=== PATIENT | female | born 1985 | race Caucasian/White ===

== ENCOUNTER 2020-06-30 08:47 | Outpatient (REF) | payer OTHER, SELFPAY ==
[2020-06-30 10:05] LABS: Free T4 (Free Thyroxine) 1.01 ng/dL (0.71-1.85); Thyroid Stimulating Hormone 1.92 uIU/mL (0.32-4.0)
[2020-06-30 10:06] LABS: Hematocrit 41.3 % (37-47); Hemoglobin 13.3 g/dl (12.0-16.0); Mean Corpuscular HGB Conc 32.2 g/dl (31.0-35.0); Mean Corpuscular Volume 86.9 fL (80-98); Mean Platelet Volume 9.8 fL (9.4-12.3); Platelet Count 235 X10*3/uL (160-400); Red Blood Count 4.75 X10*6/uL (4.20-5.50); Red Cell Distribution Width 12.7 % (11.0-16.0); White Blood Count 5.6 X10*3/uL (4.8-10.8)
[2020-06-30 10:50] LABS: HCG Quantitative < 2 mIU/mL
[2020-07-01 10:27] LABS: C. trachomatis RNA TMA NOT DETECTED (NOT DETECTED); N. gonorrhoeae RNA TMA NOT DETECTED (NOT DETECTED)
[2020-07-02 23:37] LABS: HPV mRNA E6/E7 rflx Not Detected (Not Detected)
== END 2020-06-30 08:48 | disposition home or self-care (01) ==
LOC: HO.LAB 08:47
PROVIDERS: PCP Internal Medicine; Referring Provider Obstetrics & Gynecology; Visit Provider Internal Medicine Endocrinology, Diabetes & Metabolism
DX: N92.1 Excessive and frequent menstruation with irregular cycle (principal); E04.2 Nontoxic multinodular goiter
CPT/HCPCS: 36415; 58100; 84439; 84443; 84702; 85027; 87491; 87591; 87624; 88142; 88305; 99212

== ENCOUNTER → 2020-07-21 14:08 | Outpatient (BNVA) | payer OTHER, SELFPAY | PROVIDERS: Visit Provider Obstetrics & Gynecology ==

== ENCOUNTER 2020-09-08 11:42 | Outpatient (REF) | payer OTHER, SELFPAY ==
[2020-09-09 01:26] LABS: Mumps Virus IgG Antibody >300.00 AU/mL; Rubella IgG Antibody 8.17 Index; Rubeola IgG (Measles) >300.00 AU/mL
[2020-09-09 04:31] LABS: HBc Num1 0.07 S/CO (0.00-0.79); Hepatitis B Core Antibody Nonreactive (Nonreactive)
[2020-09-09 04:47] LABS: HBS Num1 15.77 mIU/mL (0-7.99); HBsAGNum1 0.32 S/CO (0.00-0.99); Hepatitis B Surface Antigen Negative (Negative); ~Hepatitis B Surface Antibody REACTIVE (Nonreactive)
[2020-09-13 10:52] LABS: TS Negative Control Passed; TS Panel A 0; TS Panel B 0; TS Positive Control Passed; TSpotTB Negative (SeeBelow)
== END 2020-09-08 11:43 | disposition home or self-care (01) ==
LOC: HO.LAB 11:42
PROVIDERS: PCP Internal Medicine; Visit Provider Internal Medicine
DX: Z01.84 Encounter for antibody response examination (principal)
CPT/HCPCS: 36415; 86481; 86704; 86706; 86735; 86762; 86765; 86787; 87340

== ENCOUNTER → 2021-01-03 07:54 | Outpatient (BNVA) | payer OTHER, SELFPAY | PROVIDERS: PCP Internal Medicine; Visit Provider Obstetrics & Gynecology | DX: N92.1 Excessive and frequent menstruation with irregular cycle (principal) | CPT/HCPCS: 99212 ==

== ENCOUNTER 2021-02-18 12:01 | Outpatient (REF) | payer OTHER, SELFPAY ==
[2021-02-21 03:33] LABS: SARS COV2 IgG Positive (Negative)
== END 2021-02-18 12:02 | disposition home or self-care (01) ==
LOC: HO.LAB 12:01
PROVIDERS: PCP Physician Assistant; Visit Provider Hospitalist
DX: U07.1 COVID-19 (principal)
CPT/HCPCS: 36415; 86769

== ENCOUNTER 2021-11-18 07:47 | Outpatient (REF) | payer OTHER, SELFPAY ==
[2021-11-18 09:30] LABS: Alanine Aminotransferase 35 U/L (0-31); Albumin Level 4.3 g/dL (3.5-5.0); Alkaline Phosphatase 65 U/L (39-117); Anion Gap 11 (12-20); Aspartate Amino Transferase 19 U/L (5-31); Bilirubin Total 0.9 mg/dL (0.0-1.0); Blood Urea Nitrogen 14 mg/dL (9-16); Calcium 9.3 mg/dL (8.4-10.2); Carbon Dioxide 26 mmol/L (22-29); Chloride 106 mmol/L (96-108); Cholesterol 233 mg/dL; Estimated Glomerular Filt Rate > 60; Glucose Fasting 110 mg/dL (60-99); HDL Cholesterol 48 mg/dL; LDL Cholesterol Calculated 167 mg/dl; Potassium 4.3 mmol/L (3.3-5.1); Sodium 139 mmol/L (135-145); Triglycerides 93 mg/dL
[2021-11-18 09:36] LABS: Thyroid Stimulating Hormone 2.77 uIU/mL (0.32-4.0)
== END 2021-11-18 07:48 | disposition home or self-care (01) ==
LOC: HO.LAB 07:47
PROVIDERS: PCP Internal Medicine; Visit Provider Internal Medicine
DX: Z00.00 Encounter for general adult medical examination without abnormal findings (principal); E04.2 Nontoxic multinodular goiter
CPT/HCPCS: 36415; 80053; 80061; 84443

== ENCOUNTER 2022-01-05 16:29 | Outpatient (REF) | payer OTHER, SELFPAY ==
--- NOTE | ~2022-01-05 | US_ITS ---
EXAMINATION: US THYROID CLINICAL INFORMATION: Nontoxic multinodular goiter. COMPARISON: CT soft tissue neck 12/16/2019. Ultrasound soft tissue head/neck thyroid dated 07/08/2019. TECHNIQUE: Linear transducer grayscale and color Doppler examination with attention to the region of the thyroid. FINDINGS: SIZE: Measurements of the solitary left thyroid lobe and nodules are given in sagittal, anteroposterior and transverse dimensions respectively. Right Thyroid Lobe: Surgically absent. Left Thyroid Lobe: 5.1 x 1.4 x 1.5 cm, volume 5.6 mL. Previously 4.4 x 1.8 x 1.8 cm, volume 7.5 mL. Parenchyma: The gland echotexture is heterogeneous. Thyroid vascularity is normal. Isthmus: 0.6 cm in maximum AP dimension. Previously 0.7 cm. Estimated total number of nodules greater than or equal to 1 cm: 0. Sterile Supervisor nodules are described as follows: 1. Location: Isthmus. Size: 0.4 x 0.4 x 0.4 cm, volume 0.03 mL. Previously: New since the previous study. Nodule characteristics: Composition: Solid (2). Echogenicity: Hypoechoic (2). Shape: Not taller than wide (0). Margins: Smooth (0). Echogenic Foci: None (0). ACR TI-RADS total points: 4 ACR TI-RADS category: 4 2. Location: Left inferior. Size: 0.4 x 0.4 x 0.3 cm, volume 0.02 mL. Previously: New since the previous study. Nodule characteristics: Composition: Cystic(0). ACR TI-RADS total points: 0 ACR TI-RADS category: 1 NODES: No lymphadenopathy is seen in the tissue surrounding the thyroid gland. US/US thyroid IMPRESSION: Right thyroidectomy. Small nonsuspicious subcentimeter nodules in the lower pole left lobe and isthmus.. ACR TI-RADS RECOMMENDATION REFERENCE: Ultrasound-guided fine-needle aspiration, followup ultrasound, no further follow up. * TR1 (0 point) and TR 2 (2 points): No FNA or follow up * TR3 (3 points): FNA if more than or equal to 2.5 cm in maximum dimension, followup ultrasound in 1, 3 and 5 years if 1.5 to 2.4 cm in maximum dimension. * TR4 (4-6 points): FNA if more than or equal to 1.5 cm in maximum dimension, followup ultrasound in 1, 2, 3 and 5 years if 1 to 1.4 cm in maximum dimension. * TR5 (more than or equal to 7 points): FNA if more than or equal to 1 cm in maximum dimension, followup ultrasound every year for 5 years if 0.5 to 0.9 cm in maximum dimension. * TR3, TR4 or TR5 nodules that are below the size threshold for follow up receive no follow up.
== END 2022-01-05 16:30 | disposition home or self-care (01) ==
LOC: HO.US 16:29
PROVIDERS: Visit Provider Internal Medicine
DX: E04.2 Nontoxic multinodular goiter (principal)
CPT/HCPCS: 76536

== ENCOUNTER 2023-09-12 13:42 | Outpatient (AMB) | payer OTHER, SELFPAY ==
[2023-09-12 13:43] VITALS: BP 120/62; PULSE 97; O2SAT 98; BMI 39.3
--- NOTE | 2023-09-12 13:43 | A.OFFPC_ITS ---
Vital Signs 09/12/23 13:43 Height 5 ft 3 in Weight 222 lb BMI 39.3 BP 120/62 Blood Pressure Location Lt brachial Position Sitting Pulse 97 Pulse Source Pulse Oximeter Pulse Oximetry (%) 98 Oxygen Delivery Method Room Air Intake Visit Reasons: Annual PE Intake Note: Patient is here today for a physical. Clinical Program Coordinator Required: No Accompanied by: Self / Same As Patient Is last menstrual period known: Yes Last menstrual period: 09/07/23 Allergies No Known Allergies [No Known Allergies*] Allergy (Verified 09/12/23 13:49) Medication List - Last Reconciled 09/12/23 by Flex Roman PA-C cetirizine (Zyrtec) 10 mg PO DAILY PRN 30 days levonorgestrel-ethinyl estrad 0.1-20 mg-mcg (Sronyx) 1 tab PO DAILY Tobacco use date assessed: 11/09/21 HPI Annual PE HPI Details Patient is a 38-year-old female here today for a PE. Patient has a past medical history significant thyroid nodule, dysfunctional uterine bleeding. .. .. Concerns--> reports over the last 6 months noting frequent bowel movements especially after she eats. She has not found a food trigger. She is interested in seeing a assistant bookkeeper. PLAN: Will try a food diary to see if there is a food cause Also has been having more umbilical pain. She does report having history of umbilical hernia. Did have a recent and gave vaginally 9 months ago. Obesity: She does admit to dietary indiscretion. She does not do any formal physical activity. She has gained weight since last office visit. She admits to perhaps having a lot of salt in her diet. She does have bilateral lower extremity trace edema. .. Vaccines: Up-to-date with tetanus, has not gotten COVID vaccine, declines flu . .. Account Resolution Specialist: Followed [facility] docketing specialist, Pap done at [facility] Medical History Skin lesion Hair loss Physical exam COVID-19 Right thyroid nodule Anemia Non-toxic multinodular goiter Surgical History H/O partial thyroidectomy Hx of cholecystectomy Family History Father No problems noted. Mother Diabetes Social History (Updated 09/12/23 @ 13:54 by Flex Roman PA-C) Housing: House Alcohol intake: current Alcohol intake frequency: holidays/special occasions only Alcohol type: wine and hard liquor Patient Tobacco Use Status: Never used Tobacco e-Cigarette/Vaping Use: Never Used Second Hand Smoke Exposure: Yes service: No Current occupational status: employed Current occupation: call center Cognitive needs: No Hearing needs: No Vision needs: No Female Reproductive History Menstrual Age of Menarche: 10 Date of last menstrual period: 09/07/23 Questionnaire PHQ-9 Over the last 2 weeks, how often have you been bothered by any of the following problems? 1. Little interest or pleasure in doing things: not at all 2. Feeling down, depressed, or hopeless: not at all 3. Trouble falling or staying asleep, or sleeping too much: not at all 4. Feeling tired or having little energy: not at all 5. Poor appetite or overeating: not at all 6. Feeling bad about yourself - or that you are a failure or have let yourself or your family down: not at all 7. Trouble concentrating on things, such as reading the newspaper or watching television: not at all 8. Moving or speaking so slowly that other people could have noticed. Or the op posite - being so fidgety or restless that you have been moving around a lot more than usual: not at all 9. Thoughts that you would be better off or of hurting yourself in some way: not at all Total score: 0 Depression Screening Interpretation: Negative Depression Screening Done: Yes 68216 - PHQ-9 Billing: Yes Source: Developed by Drs. Kimani Marte, Leticia Gillespie, Modesto Quezada and colleagues, with an educational uma from [employer]. Thrive Questionnaire Date Thrive assessed: 09/12/23 I am a: Patient What is your living situation today?: I have a steady place to live Within the past 12 months, did the food you bought not last and you didn't have the money to get more?: Never true Within the past 12 months, did you worry whether your food would run out before you got money to buy more?: Never true Do you have trouble paying for medicines?: No Do you have trouble getting transportation to medical appointments?: No THRIVE Score: 0 AUDIT C Alcohol Use Questionnaire (AUDIT-C) 1. How often do you have a drink containing alcohol?: Never 3. How often do you have six or more drinks on one occasion?: Never Total Score: 0 JAILENE-7 AMB Questionnaire JAILENE-7 Date JAILENE - 7 assessed: 09/12/23 Feeling nervous, anxious, or on edge: 0 = Not at all Not being able to stop or control worryin = Not at all Worrying too much about different things: 0 = Not at all Trouble relaxin = Not at all Being so restless that it is hard to sit still: 0 = Not at all Becoming easily annoyed or irritable: 0 = Not at all Feeling afraid as if something awful might happen: 0 = Not at all Total JAILENE-7 score (0-4 normal; 5-9 mild; 10-14 moderate; 15-21 severe): 0 Source: Developed by Drs. Kimani Marte, Leticia Gillespie, Modesto Quezada and colleagues, with an educational uma from [employer]. JAILENE-7 Assessment Billing JAILENE-7 Assessment Tool: JAILENE-7 Assessment 00486 Review of Systems Const Denies body aches, Denies chills, Denies excessive sweating, Denies fatigue, Denies fever(s) and Denies headache(s) Eyes Denies blurry vision ENT Denies dysphagia, Denies vertigo, Denies dizziness, Denies headache(s), Denies hearing loss and Denies tinnitus Card Denies chest pain, Denies chest pain with activity, Denies syncope, Denies irregular heart rhythm and Denies dyspnea Resp Denies chest congestion, Denies cough, Denies hemoptysis, Denies dyspnea and Denies wheezing GI Denies abdominal pain, Denies melena, Denies hematochezia, Denies coffee ground emesis, Denies dysphagia, Denies diarrhea, Denies nausea and Denies vomiting Denies urinary frequency, Denies dysuria, Denies urinary hesitancy and Denies urinary urgency Musc Denies arthralgias, Denies limited range of motion, Denies muscle cramps and Denies muscle weakness Skin/Breast Denies rash and Denies skin ulcer Neuro Denies Abnormal speech present, Denies confusion, Denies vertigo, Denies dizziness, Denies syncope, Denies headache(s), Denies memory loss and Denies seizure-like activity Psych Denies anxiety, Denies confusion, Denies depression, Denies memory loss, Denies panic attacks and Denies paranoia Endo Denies excessive sweating, Denies fatigue, Denies flushing, Denies polydipsia and Denies polyuria Aller/Immun Denies wheezing Physical exam (Primary Care) Vital Signs: Last Vital Signs Pulse 97 09/12/23 13:43 BP 120/62 09/12/23 13:43 Pulse Ox 98 09/12/23 13:43 Oxygen Delivery Method Room Air 09/12/23 13:43 BMI result Body Mass Index 39.3 BMI Assessment/Plan discussion: High BMI High, discussed plan: lifestyle and weight reduction Tobacco/Smoking Status: Tobacco use Status Tobacco use date assessed 11/09/21 09/12/23 13:45 Patient Tobacco Use Status Never used Tobacco 09/12/23 13:54 e-Cigarette/Vaping Use Never Used 09/12/23 13:54 PHQ-9: PHQ-9 Score PHQ-9: Total score 0 09/12/23 13:50 Depression Screening Interpretation: Negative Thrive Assessment: Date of Thrive Assessment Date Thrive assessed 09/12/23 09/12/23 13:45 Const Other: OBESE General: cooperative, comfortable, no acute distress, alert and awake; No confusion Orientation/consciousness: oriented to person, oriented to place, patient oriented x3 and No confusion HENMT Head: Yes normocephalic Ears: external ears normal and TM's normal bilaterally Face and sinus: No sinus tenderness Mouth: Normal oral and palatal mucosa present and tongue normal Teeth and gingiva: dentition normal and gingiva normal Throat: Yes posterior oropharynx normal, Yes tonsils normal and Yes uvula midline Eyes Conjunctivae: conjunctivae normal Sclerae: sclerae normal Pupils: Equal, round and reactive pupils present EOM: EOMs intact bilaterally Direct Ophthalmoscopy: No no photophobia Neck Neck: Yes no lymphadenopathy, No tender and Yes no JVD Thyroid: Thyroid normal Carotids: no bruits Chest Chest palpation & inspection: no tenderness Resp Effort & Inspection: normal respiratory effort, no audible wheezes, not labored and no stridor Auscultation: no crackles, no rales, no rhonchi and no wheezes Cardio Jugular venous distension: no JVD Rate: regular rate, not bradycardic and not tachycardic Rhythm: regular rhythm Bruits: no carotid bruits Peripheral pulses: Peripheral pulses 2+ throughout GI Inspection: Yes normal to inspection, No abdominal wall ecchymosis and No v isible herniation Palpation (GI): Soft to palpation, nontender, no guarding, not rigid and No hepatosplenomegaly present Auscultation: normoactive bowel sounds General: Yes no CVA tenderness Back/Spine/Pelvis Back: no CVA tenderness and No back tenderness Cervical Spine: cervical ROM normal Thoracic/Lumbar Spine: thoracic and lumbar spine normal to inspection, straight leg raise negative bilaterally, No thoraco-lumbar ROM limited and No lumbar spinal tenderness Skin Lesions: no lesions Rashes: no rashes Wounds: no wounds Neuro General: oriented to person, oriented to place, patient oriented x3, CN's II-XI intact bilaterally and No confusion Cranial nerves: Yes Equal, round and reactive pupils present and Yes Normal accommodation reflex present Cognition (Neuro): normal cognition Speech: No Abnormal speech present Gait exam (Neuro): Normal gait present Motor exam (neuro): 5/5 motor strength present throughout Extrem Right upper extremity: full ROM; no cyanosis Left upper extremity: full ROM; no cyanosis Right lower extremity: no edema Left lower extremity: no edema Psych Appearance: grossly normal Mental Status: mental status grossly normal Affect: normal affect Attitude: cooperative Thought process: Normal thought process present Assessment and Plan Assessment & Plan (1) Annual physical exam: Code(s): Z00.00 - Encounter for general adult medical examination without abnormal findings (2) Allergic rhinitis: Code(s): J30.9 - Allergic rhinitis, unspecified Qualifiers: Allergic rhinitis seasonality: unspecified Allergic rhinitis trigger: pollen Qualified Code(s): J30.1 - Allergic rhinitis due to pollen Plan: Continues with p.r.n. use of Zyrtec which has been helpful for her allergies. (3) Non-toxic multinodular goiter: Code(s): E04.2 - Nontoxic multinodular goiter Plan: Patient status post right thyroid lobectomy. Will continue to follow TSH. Patient has had secondary affects from her thyroid disease of lower extremity edema was prescribed spironolactone in the past which had help reduce her lower extremity swelling. (4) Umbilical hernia: Code(s): K42.9 - Umbilical hernia without obstruction or gangrene Qualifiers: Obstruction and gangrene presence: without obstruction or gangrene Qualified Code(s): K42.9 - Umbilical hernia without obstruction or gangrene Plan: Patient does have clinically evident umbilical hernia that is reducible. She will consider having this repaired in the future. (5) Screening for diabetes mellitus (DM): Code(s): Z13.1 - Encounter for screening for diabetes mellitus (6) Lower leg edema: Code(s): R60.0 - Localized edema Plan: As above (7) Frequent bowel movements: Code(s): R19.4 - Change in bowel habit Plan: She reports over the last 6 months having frequent bowel movements particularly after she eats. She has not found a particular food trigger. (8) Heavy menstrual bleeding: Code(s): N92.0 - Excessive and frequent menstruation with regular cycle Qualifiers: Menorrhagia type: with regular cycle Qualified Code(s): N92.0 - Excessive and frequent menstruation with regular cycle Plan: Patient now seen docketing specialist at [facility]. Has been started on oral control. Does report feeling somewhat fatigued due to her heavy menses she is. Will check CBC and iron studies. Orders: Orders Endomysial IgA rflx Titer 09/12/23 R14.0 - Abdominal distension (gaseous), R19.4 - Change in bowel habit Transglutaminase IgA 09/12/23 R14.0 - Abdominal distension (gaseous), R19.4 - Change in bowel habit Transglutaminase Ab IgG 09/12/23 R14.0 - Abdominal distension (gaseous), R19.4 - Change in bowel habit IRON PROFILE 09/12/23 D50.9 - Iron deficiency anemia, unspecified, N92.0 - Excessive and frequent menstruation with regular cycle Comprehensive [place]. Panel Fast 09/12/23 Z13.1 - Encounter for screening for diabetes mellitus TSH reflex Free T4 09/12/23 E04.2 - Nontoxic multinodular goiter Complete Blood Count no Diff 09/12/23 R19.4 - Change in bowel habit Referrals General Surgery Referral K42.9 - Umbilical hernia without obstruction or gangrene Gastroenterology Referral R19.4 - Change in bowel habit Medications: New hydrochlorothiazide 12.5 mg PO Q OTHER DAY 15 tabs 1RF 30 days R60.0 - Localized edema Coding Level of Care Code Est Pt Prev Care 18-39y(65843) Diagnoses Annual physical exam Z00.00 Allergic rhinitis due to pollen, unspecified seasonality J30.1 Allergic rhinitis seasonality: unspecified Allergic rhinitis trigger: pollen Non-toxic multinodular goiter E04.2 Umbilical hernia without obstruction and without gangrene K42.9 Obstruction and gangrene presence: without obstruction or gangrene Screening for diabetes mellitus (DM) Z13.1 Lower leg edema R60.0 Frequent bowel movements R19.4 Menorrhagia with regular cycle N92.0 Menorrhagia type: with regular cycle Additional Codes JAILENE-7 Assessment Billing - JAILENE-7 Assessment Tool: JAILENE-7 Assessment [id number] ([id number])
== END 2023-09-12 14:26 | disposition home or self-care (01) ==
PROVIDERS: PCP Internal Medicine; Visit Provider Physician Assistant
DX: Z00.00 Encounter for general adult medical examination without abnormal findings (principal); J30.1 Allergic rhinitis due to pollen; E04.2 Nontoxic multinodular goiter; K42.9 Umbilical hernia without obstruction or gangrene; Z13.1 Encounter for screening for diabetes mellitus; R60.0 Localized edema; R19.4 Change in bowel habit; N92.0 Excessive and frequent menstruation with regular cycle
CPT/HCPCS: 99395

== ENCOUNTER 2023-10-15 14:22 | Outpatient (AMB) | payer OTHER, SELFPAY ==
--- NOTE | 2023-10-15 14:30 | MHC.OFFVIS ---
Vital Signs 10/15/23 14:35 Height 5 ft 3 in Weight 221 lb BMI 39.1 BP 130/62 Blood Pressure Location Rt brachial Position Sitting Pulse 96 Intake Visit Reasons: Umbilical hernia Intake Note: Patient referred by Flex Roman for Umbilical hernia. Present for 6yrs. Patient c/o: enlarging. Denies nausea, diarrhea. 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 She has had a several year history of a symptomatic umbilical hernia. He does markedly increased in size and become more symptomatic and she would like to have it repaired. She does occasional heavy lifting with her child. Patient otherwise tolerates her diet and has regular bowel habits. No other GI issues or complaints. Chart was reviewed and patient evaluated FOR[facility]LY [facility], [facility] Medical History (Updated 10/15/23 @ 14:35 by Alvaro Larkin MD) Skin lesion Hair loss Physical exam COVID-19 Right thyroid nodule Anemia Non-toxic multinodular goiter Surgical History (Updated 10/15/23 @ 14:41 by Alvaro Larkin MD) Umbilical hernia H/O partial thyroidectomy Hx of cholecystectomy Family History Father No problems noted. Mother Diabetes Social History Housing: House Alcohol intake: current Alcohol intake frequency: holidays/special occasions only Alcohol type: wine and hard liquor Patient Tobacco Use Status: Never used Tobacco e-Cigarette/Vaping Use: Never Used Second Hand Smoke Exposure: Yes service: No Current occupational status: employed Current occupation: call center Cognitive needs: No Hearing needs: No Vision needs: No Female Reproductive History Menstrual Age of Menarche: 10 Physical Exam Vital Signs: Last Vital Signs Pulse 96 10/15/23 14:35 BP 130/62 10/15/23 14:35 BMI result Body Mass Index 39.1 Chest Other: Chest breath sounds bilaterally, HS 1 in 2 GI Other: Corpulent abdomen. Patient was examined both supine and standing with Valsalva. Bilateral groin exam negative. Proximally 3 cm reducible umbilical hernia. Abdomen otherwise benign Assessment & Plan Assessment & Plan (1) Umbilical hernia: Code(s): K42.9 - Umbilical hernia without obstruction or gangrene Category: Surgical Qualifiers: Obstruction and gangrene presence: without obstruction or gangrene Qualified Code(s): K42.9 - Umbilical hernia without obstruction or gangrene Plan Risks, benefits, alternatives of open umbilical hernia. With mesh were reviewed the patient and her and included but not limited to bleeding, infection, recurrence, numbness, pain, scarring and the patient wished to proceed. All questions answered. Arrangements were made for this. Coding Level of Care Code New Pt Level 5 (21480) Diagnoses Umbilical hernia without obstruction and without gangrene K42.9 Obstruction and gangrene presence: without obstruction or gangrene
[2023-10-15 14:35] VITALS: BP 130/62; PULSE 96; BMI 39.1
== END 2023-10-15 14:41 | disposition home or self-care (01) ==
PROVIDERS: PCP Internal Medicine; Referring Provider Physician Assistant; Visit Provider Surgery
DX: K42.9 Umbilical hernia without obstruction or gangrene (principal)
CPT/HCPCS: 99204

== ENCOUNTER → 2023-10-15 14:22 | Outpatient (BNVA) | payer OTHER, SELFPAY | PROVIDERS: PCP Internal Medicine; Referring Provider Physician Assistant; Visit Provider Surgery | DX: K42.9 Umbilical hernia without obstruction or gangrene (principal) | CPT/HCPCS: 99202 ==

== ENCOUNTER 2023-11-08 13:36 | Day surgery (SDC) | payer OTHER, SELFPAY ==
[2023-11-06 14:31] VITALS: BMI 39.1
--- NOTE | 2023-11-07 11:16 | MHC.SHP ---
Pre-Procedural Eval Section A - 24 Hr Update-Section A only Date of Service: 11/07/23 The patient is an INPATIENT: No Changes since office visit: No Cold of Flu in the past 2 weeks, No New Medical Problems, No Changes in Medication and No Patient answered all questions Section B - Complete if H&P > 30 days Chief Complaint: Umbilical hernia without obstruction or gangrene Allergies: Allergies Allergy/AdvReac Type Severity Reaction Status Date / Time No Known Allergies Allergy Verified 10/15/23 14:31 [No Known Allergies*] Plan I have reviewed the history and physical and performed a pertinent physical examination on my patient. No changes have occurred unless specified. Time Spent With Patient Time: Total time managing care of this patient today ____ minutes.
--- NOTE | 2023-11-07 11:48 | HO.ANESPROP2 ---
Documented by User: Heidi Nevarez NP 11/07/23 11:48 HPI - Anesthesia Eval Consult details Narrative: 38yo F for Repair Hernia Umbilical Reducible with mesh PMFSH Active Problems Active Problems: All Active Problems Heavy menstrual bleeding (Acute) Frequent bowel movements (Acute) Skin lesion (Acute) Hair loss (Acute) Physical exam (Acute) COVID-19 (Acute) Blurred vision, bilateral (Acute) Lower leg edema (Acute) Screening for hypercholesterolemia (Acute) Screening for diabetes mellitus (DM) (Acute) Umbilical hernia (Acute) Allergic rhinitis (Acute) Annual physical exam (Acute) Menometrorrhagia (Acute) Non-toxic multinodular goiter (Acute) Past Medical History Medical History Skin lesion Hair loss Physical exam COVID-19 Right thyroid nodule Anemia Non-toxic multinodular goiter Family History Family History Father No problems noted. Mother Diabetes Surgical History Surgical History Umbilical hernia H/O partial thyroidectomy Hx of cholecystectomy Social History Social History Housing: House Alcohol intake: current Alcohol intake frequency: holidays/special occasions only Alcohol type: wine and hard liquor Patient Tobacco Use Status: Never used Tobacco e-Cigarette/Vaping Use: Never Used Second Hand Smoke Exposure: Yes Are you DNR?: No Advance Directives: No Advance Directives Information Provided: Yes Nutrition Risks: No Nutritional Risk FDLMP: 09/05/23 service: No Current occupational status: employed Current occupation: call center Cognitive needs: No Hearing needs: No Vision needs: No Meds Allergies Allergy/AdvReac Type Severity Reaction Status Date / Time No Known Allergies Allergy Verified 11/08/23 13:44 [No Known Allergies*] Home Medications ?Medication ?Instructions ?Recorded ?Confirmed ?Last Taken ?Type levonorgestrel-ethinyl estradiol 1 tab PO DAILY 09/12/23 09/12/23 Unknown History 0.1 mg-20 mcg tablet (Sronyx) Exam Height,Weight and Vital Signs: Height 5 ft 3 in Weight 100.244 kg Assessment and Plan Assessment Anesthesia Assessment: Chart Reviewed Documented by User: Ronald Escalante MD 11/08/23 14:00 PMFSH Past Medical History Medical History Skin lesion Hair loss Physical exam COVID-19 Right thyroid nodule Anemia Non-toxic multinodular goiter Patient : No Family History Family History Father No problems noted. Mother Diabetes Family history of problems with anesthesia: No Surgical History Surgical History Umbilical hernia H/O partial thyroidectomy Hx of cholecystectomy History of Problems with Anesthesia: No Social History Social History Housing: House Alcohol intake: current Alcohol intake frequency: holidays/special occasions only Alcohol type: wine and hard liquor Patient Tobacco Use Status: Never used Tobacco e-Cigarette/Vaping Use: Never Used Second Hand Smoke Exposure: Yes Are you DNR?: No Advance Directives: No Advance Directives Information Provided: Yes Nutrition Risks: No Nutritional Risk FDLMP: 09/05/23 service: No Current occupational status: employed Current occupation: call center Cognitive needs: No Hearing needs: No Vision needs: No Meds Allergies Allergy/AdvReac Type Severity Reaction Status Date / Time No Known Allergies Allergy Verified 11/08/23 13:44 [No Known Allergies*] Home Medications ?Medication ?Instructions ?Recorded ?Confirmed ?Last Taken ?Type levonorgestrel-ethinyl estradiol 1 tab PO DAILY 09/12/23 09/12/23 Unknown History 0.1 mg-20 mcg tablet (Sronyx) Exam Airway Mallampati Class: II TM Dist: >3cm Neck ROM: Full Loose/Missing/Broken Teeth: No Heart: ok Lungs: ok Assessment and Plan Assessment Anesthesia Assessment: Anesthesia Plan Discussed Final Anesthetic Review Family History of Problems with Anesthesia: No History of Problems with Anesthesia: No NPO: Yes ASA Class: II Final Preanesthetic Review: No Changes in Pt Med Stat, Meds/Allgs Chart Reviewed, Consent Obtained/Reviewed and Anes Risks/Benef Reviewed Patient Risk: Low Procedure Risk: Low Anesthetic Plan Anesthetic Plan: GA and Agree w/ Assess. and Plan Disposition: Standard PACU
[2023-11-08 13:44] VITALS: BMI 39.1
--- NOTE | 2023-11-08 13:50 | W.PM.OPN ---
Operative Note Operative Note Date of Service: 11/08/23 Narrative: Preoperative diagnosis: [] Symptomatic enlarging umbilical hernia Postop diagnosis: [] the same Procedure [] open umbilical herniorrhaphy with Bard mesh Surgeon: [] Trae Principal Biostatistician: [] Type of Anesthesia: [] Indication for surgery: [] Symptomatic umbilical hernia. Very corpulent abdomen. Reducible omental contents Fascial defect measures proximally 4 cm Findings: [] Patient brought to the operating room, placed on operative table supine position, after adequate level of general anesthesia was induced, the patient's abdomen was prepped and draped in usual sterile fashion. Using a supraumbilical curvilinear incision, this carried down through skin, subcutaneous tissue, were large hernia sac was identified and circumferentially dissected away from the surrounding soft tissue and the posterior aspect of the umbilicus down to the fascia and opened. Redundant sac was amputated at the fascia margin using Bovie. Fascia was circumferentially cleared. Defect measured approximately 4 cm. Appropriately sized 8 cm Bard do mesh was placed and the superficial layer of the mesh was circumferentially sutured to the surrounding fascia using interrupted 0 Ethibond suture. At completion of procedure, mesh was in good position with no tension or gallops. Wound was irrigated, secured hemostasis. Wound was closed in the following manner; posterior aspect of the umbilicus was tacked to the wound floor using interrupted 3-0 Vicryl sutures. Skin was closed using interrupted inverted dermal 3-0 Vicryl sutures followed by Steri-Strips and sterile dressings. Wound was infiltrated at the beginning at the end with 0.5% Marcaine/1% lidocaine. Sponge, needle, and instrument counts reported correct. Patient tolerated the procedure well and emerged from anesthesia stable condition. EBL minimal
[2023-11-08] MEDS: Lactated Ringers 1,000 ML 100 ML IVCONT (13:56)
[2023-11-08 14:04] LABS: UPreg QC Valid YES; Urine Pregnancy NEGATIVE (NEGATIVE)
[2023-11-08 14:08] VITALS: BP 133/79; PULSE 89; RESP 18; TEMP 36.9; O2SAT 96
[2023-11-08 15:00] VITALS: BP 138/84; PULSE 96; RESP 18; TEMP 36.3; O2SAT 96
[2023-11-08 15:05] VITALS: BP 145/86; PULSE 94; RESP 18; O2SAT 96
[2023-11-08 15:10] VITALS: BP 151/93; PULSE 95; RESP 18; O2SAT 95
[2023-11-08 15:15] VITALS: BP 133/74; PULSE 79; RESP 20; O2SAT 96
[2023-11-08 15:29] VITALS: BP 124/79; PULSE 65; RESP 20; TEMP 36.1; O2SAT 98
--- OUTSIDE RECORDS SUMMARY | 2023-11-09 11:19 | XMS_ITS | Continuity of Care Document ---
Author Organization [facility] ter Address [address] [place] [address]- Care Team Providers Care Cattle Rancher Name Role Phone Zion Nieves MD, Lucero Kim Primary Care Physician [phone] Encounter [facility] [place] Date(s): 08/16/23 - 08/23/[address] [address] Attending Physician: Garrett Waller MD Allergies, Adverse Reactions, Alerts No Known Allergies Medications acetaminophen 325 mg oral tablet 650 mg, By Mouth, Every 4 hours, PRN, (1-3), may give 325mg per patient preference and re-dose [id number] within 4 hours, if needed. Patient should only receive a total of 650mg of Acetaminophen every 4 hours., Refills 0, Maintenance, Pain , Mild, 0... Start Date: 11/18/22 Status: Ordered ferrous sulfate 325 mg oral tablet 1 tablet = 325 mg, By Mouth, 3 times a day, # 270 tablet, 0 Refills, Maintenance, 10/19/18 7:59:55 EDT, Tablet Start Date: 10/19/18 Status: Ordered ibuprofen 800 mg oral tablet 800 mg, By Mouth, Every 8 hours, PRN, (4-6), may give 400mg per patient preference and re-dose [id number] within 8 hours if needed. Patient should only receive a total of 800mg of Ibuprofen every 8 hours., Refills 0, Maintenance, Pain , Moderate, 06... Start Date: 11/18/22 Status: Ordered Vitamin D3 5000 iu, By Mouth, Daily, 0 Refills, Maintenance, 04/07/20 10:15:00 EST Start Date: 04/07/20 Status: Ordered Problem List Condition Confirmation Course Effective Dates Status Health St atus Informant Obese class II Confirmed Active Postop check Confirmed Active Right thyroid nodule Confirmed Active Vaginal bleeding Confirmed Active Patient Care team information Care Team Personnel Name: Zion Nieves MD , Lucero Kim Position: Reference Physician Member Role: PCP Address: Address: [address] [place] [address]- Care Team Related Persons Name: NORIS FOX Address: [id number] Address: [address] [address] [place] Name: ELIZABETH FOX Address: [address] [address]
--- OUTSIDE RECORDS SUMMARY | 2023-11-09 11:19 | XMS_ITS | Continuity of Care Document ---
Author Organization [facility] Address [address] [place] [address] [address] [place] [address]- Care Team Providers Care Telephone Order Clerk Name Role Phone Zion Nieves MD, Lynne Kim Primary Care Physician Encounter [facility] [place] [facility] [place] [id number] Date(s): 11/20/19 - 11/27/[address] [place] [address]- [facility] Attending Physician: Angel Gonzales MD Referring Physician: Katiuska Madsen MD Allergies, Adverse Reactions, Alerts Substance Reaction Severity Status NKA Active Medications Apri 0.15 mg-0.03 mg oral tablet 1 tablet, By Mouth, Daily, Take one pill 3 times a day for 7 days, then take 1 pill daily., # 84 tablet, 4 Refills, Maintenance, 10/19/18 11:11:36 EDT, Tablet Start Date: 10/19/18 Status: Ordered cholecalciferol 2000 intl units oral capsule 1 capsule = 2,000 International_Units, By Mouth, Daily, 0 Refills, Maintenance, 11/20/19 16:22:00 EDT, Capsule Start Date: 11/20/19 Status: Ordered ferrous sulfate 325 mg oral tablet 1 tablet = 325 mg, By Mouth, 3 times a day, # 270 tablet, 0 Refills, Maintenance, 10/19/18 7:59:55 EDT, Tablet Start Date: 10/19/18 Status: Ordered Problem List Condition Effective Dates Status Health Status Inform ant Vaginal bleeding(Confirmed) Active Vital Signs Most recent to oldest [Reference Range]: 1 Height 160 cm (11/20/19 4:19 PM) Weight 95.7 kg (11/20/19 4:19 PM) Pulse Rate [55-90 bpm] 96 bpm *H* (11/20/19 4:19 PM) Body Mass Index [18.5-24.99] 37.38 *>HHI* (11/20/19 4:19 PM) Blood Pressure [90-138/55-84 mm Hg] 128/ 81mm Hg (11/20/19 4:19 PM) Respiratory Rate [16-30 br/min] 20 br/mi n (11/20/19 4:19 PM) Temperature [96.8-100.4 DegF] 97.7 DegF (11/20/19 4:19 PM) Blood pressure sites Arm, left (11/20/19 4:19 PM) Temperature Route Temporal (11/20/19 4:19 PM) Weight Obtained Via Standing scale (11/20/19 4:19 PM)
--- OUTSIDE RECORDS SUMMARY | 2023-11-09 11:19 | XMS_ITS | Continuity of Care Document ---
Author Organization [facility] Address [address] [place] [address] [address] [place] [address]- Care Team Providers Care Knurling Machine Operator Name Role Phone Zion Nieves MD, Lynne Kim Primary Care Physician Encounter [facility] Date(s): 04/22/20 - 05/22/[address] [place] [address]- Allergies, Adverse Reactions, Alerts Substance Reaction Severity Status NKA Active Medications ferrous sulfate 325 mg oral tablet 1 tablet = 325 mg, By Mouth, 3 times a day, # 270 tablet, 0 Refills, Maintenance, 10/19/18 7:59:55 EDT, Tablet Start Date: 10/19/18 Status: Ordered Misc Rx Isabloom(BCP)! tab, By Mouth, Daily, Refills 0, Maintenance, 04/07/20 10:17:00 EST, Supply Start Date: 04/07/20 Status: Ordered Spironolactone = 25 mg, By Mouth, Daily, 0 Refills, Maintenance, 04/07/20 10:21:00 EST Start Date: 04/07/20 Status: Ordered Vitamin D3 5000 iu, By Mouth, Daily, 0 Refills, Maintenance, 04/07/20 10:15:00 EST Start Date: 04/07/20 Status: Ordered Problem List Condition Effective Dates Status Health Status Inform ant Postop check(Confirmed) Active Right thyroid nodule(Confirmed) Active Vaginal bleeding(Confirmed) Active
--- OUTSIDE RECORDS SUMMARY | 2023-11-09 11:19 | XMS_ITS | Continuity of Care Document ---
Author Organization [facility] Address [address] [place] [address] [address] [place] [address]- Care Team Providers Care Retail Department Manager Name Role Phone Zion Nieves MD, Lynne Kim Primary Care Physician En[place] [facility] [place] Date(s): 05/06/20 - 06/05/[address] [place] [address]- Attending Physician: Admtr, Jose Alberto8 Admitting Physician: Admtr, Ar8 Referring Physician: Admtr, Ar8 Allergies, Adverse Reactions, Alerts Substance Reaction Severity [...]
--- OUTSIDE RECORDS SUMMARY | 2023-11-09 11:19 | XMS_ITS | Continuity of Care Document ---
Author Organization [facility] Address [address] [place] [address] [address] [place] [address]- Care Team Providers Care Service Cleaner Name Role Phone Zion Nieves MD, Lynne Kim Primary Care Physician [phone] Encounter [facility] [place] Date(s): 11/10/19 - 12/13/[address] [place] [address]- [facility] Attending Physician: Angel Gonzales MD Referring Physician: Keny Salguero MD, Katiuska Allergies, Adverse Reactions, Alerts Substance Reaction Severity [...]
--- OUTSIDE RECORDS SUMMARY | 2023-11-09 11:19 | XMS_ITS | Continuity of Care Document ---
Author Organization [facility] ter Address [address] [place] [address]- Care Team Providers Care Human Relations Professor Name Role Phone Zion Nieves MD, Lynne Kim Primary Care Physician [phone] [place] [facility] [place]): [place]12/[place] - 04/12/[address] [address]- Discharge Disposition: A-D/C Home Attending Physician: Angel Gonzales MD Admitting Physician: Angel Gonzales MD Referring Physician: Angel Gonzales MD Allergies, Adverse Reactions, Alerts Substance Reaction Severity Status NKA Active Medications ferrous sulfate 325 mg oral tablet 1 tablet = 325 mg, By Mouth, 3 times a day, # 270 tablet, 0 Refills, Maintenance, 10/19/18 7:59:55 EDT, Tablet Start Date: 10/19/18 Status: Ordered Misc Rx Isabloom(BCP)! tab, By Mouth, Daily, Refills 0, Maintenance, 04/07/20 10:17:00 EST, Supply Start Date: 04/07/20 Status: Ordered oxyCODONE 5 mg oral tablet 5 mg, 1, tablet, By Mouth, Every 6 hours, PRN, for 3 days, # 12 tablet, Refills 0, Tot. Refills 0, Acute 04/15/20 12:32:00 EST, for pain, 04/12/20 12:32:00 EST, Print Requisition, Partial fill upon patient request Start Date: 04/12/20 Stop Date: 04/15/20 Status: Ordered Spironolactone = 25 mg, By Mouth, Daily, 0 Refills, Maintenance, 04/07/20 10:21:00 EST Start Date: 04/07/20 Status: Ordered Vitamin D3 5000 iu, By Mouth, Daily, 0 Refills, Maintenance, 04/07/20 10:15:00 EST Start Date: 04/07/20 Status: Ordered Problem List Condition Effective Dates Status Health Status Inform ant Vaginal bleeding(Confirmed) Active Procedures Procedure Date Related Diagnosis Body Site Status Right thyroid lobectomy 04/12/20 C ompleted Vital Signs Most recent to oldest [Reference Range]: 1 2 3 Height 160.02 cm (04/12/20 8:22 AM) 160.02 cm (04/07/20 10:32 AM) Weight 93 kg (04/12/20 8:22 AM) 84.09 kg (04/07/20 10:32 AM) Oxygen Saturation [94-100 %] 100 % (04/12/20 2:15 PM) 98 % (04/12/20 2:00 PM) 96 % (04/12/20 1:45 PM) Pulse Rate [55-90 bpm] 82 bpm (04/12/20 8:22 AM) Body Mass Index [18.5-24.99] 36.32 *>HHI* (04/12/20 8:22 AM) 32.84 *>HHI* (04/07/20 10:32 AM) Blood Pressure [90-138/55-84 mm Hg] 133/92mm Hg (04/12/20 2:00 PM) 133/86mm Hg (04/12/20 1:45 PM) 129/87mm Hg (04/12/20 1:30 PM) Respiratory Rate [16-30 br/min] 26 br/min (04/12/20 2:15 PM) 11 br/min *L* (04/12/20 2:00 PM) 13 br/min *L* (04/12/20 1:45 PM) Temperature [96.8-100.4 DegF] 98.3 DegF (04/12/20 3:00 PM) 97.9 DegF (04/12/20 12:30 PM) 98.0 DegF (04/12/20 8:22 AM) Liters per Minute 5 L/min (04/12/20 12:30 PM) Mode of Delivery (Oxygen) Room air (04/12/20 3:30 PM) Room air (04/12/20 2:15 PM) Room air (04/12/20 1:00 PM) Blood pressure sites Arm, right (04/12/20 2:00 PM) Arm, right (04/12/20 1:45 PM) Arm, right (04/12/20 1:30 PM) Temperature Route Temporal (04/12/20 3:00 PM) Temporal (04/12/20 12:30 PM) Temporal (04/12/20 8:22 AM) Dry Weight 93 kg (04/12/20 8:22 AM) 84.09 kg (04/07/20 10:32 AM) Weight Obtained Via Standing scale (04/12/20 8:22 AM) Patient/family stated (04/07/20 10:32 AM) Dry Weight Obtained Via Standing scale (04/12/20 8:22 AM)
--- OUTSIDE RECORDS SUMMARY | 2023-11-09 11:19 | XMS_ITS | Continuity of Care Document ---
Author Organization [facility] Address [address] [place] [address] [address] [place] [address]- Care Team Providers Care Geological Technician Name Role Phone Zion Nieves MD, Lynne Kim Primary Care Physician [place] [facility] [place] - 12/20/[address] [place] [address]- [facility] Attending Physician: Jimena Fay Admitting Physician: Jimena Fay Referring Physician: AdmJimena weiner Allergies, Adverse Reactions, Alerts Substance Reaction Severity [...]
--- OUTSIDE RECORDS SUMMARY | 2023-11-09 11:19 | XMS_ITS | Continuity of Care Document ---
Author Organization [facility] ter Address [address] [place] [address]- Care Team Providers Care Meters Superintendent Name Role Phone Zion Nieves MD, Monica Primary Care Physician Encounter [facility] [place] Date(s): 11/15/22 - 12/20/[address] [address]- Attending Physician: Gurwinder Rodrigues MD Referring Physician: Atnhony PULIDO, Ann Marie Ch Allergies, Adverse Reactions, Alerts No Known Allergies Medications acetaminophen 325 mg oral tablet 650 mg, By Mouth, Every 4 hours, PRN, (1-3), may give 325mg per patient preference and re-dose [id number] within 4 hours, if needed. Patient should [...] give 400mg per patient preference and re-dose [id number] within 8 hours if needed. Patient should [...] Care team information Care Team Personnel Name: Lucero Olivier MD Position: Reference Physician Member Role: PCP Address: Address: [address] [place] [address]- Care Team Related Persons Name: NORIS FOX Address: [id number] Address: [address] [address] [place] Name: ELIZABETH FOX Address: [address] [address]
--- OUTSIDE RECORDS SUMMARY | 2023-11-09 11:19 | XMS_ITS | Continuity of Care Document ---
Author Organization [facility] Address [address] [place] [address] [address] [place] [address]- Care Team Providers Care Cyber Security Manager Name Role Phone Lynne Olivier MD Primary Care Physician Encounter [facility] [place] Date(s): 05/06/20 - 05/13/[address] [place] [address]- Encounter Diagnosis Right thyroid nodule(Discharge Diagnosis) - 05/06/20 Postop check(Discharge Diagnosis) - 05/06/20 Attending Physician: Jose Alberto Doyle Referring Physician: Lynne Olivier MD Allergies, Adverse Reactions, Alerts Substance Reaction [...] Right thyroid nodule(Confirmed) Active Vaginal bleeding(Confirmed) Active Diagnosis Diagnosis Type Effective Dates Health Status Cl inical Service Informant Right thyroid nodule Discharge Diagnosis 05/06/20 Postop check Discharge Diagnosis 05/06/20
--- OUTSIDE RECORDS SUMMARY | 2023-11-09 11:19 | XMS_ITS | Continuity of Care Document ---
Author Organization [facility] ter Address [address] [place] [id number]- Care Team Providers Care Human Resources Analyst Name Role Phone Zion Nieves MD, Lucero Kim Primary Care Physician [place] [facility] [place](s): 11/17/22 - 11/19/[address] [address] Discharge Disposition: A-D/C Home Attending Physician: Seble Enriquez MD Admitting Physician: Seble Enriquez MD Referring Physician: Seble Enriquez MD Allergies, Adverse Reactions, Alerts No Known Allergies Medications acetaminophen 325 mg oral tablet 650 mg, By Mouth, Every 4 hours, PRN, (1-3), may give 325mg per patient preference and re-dose [id number] within 4 hours, if needed. Patient should only receive a total of 650mg of Acetaminophen every 4 hours., Refills 0, Maintenance, Pain , Mild, 0... Start Date: 11/18/22 Status: Ordered Acetaminophen Tablet 650 mg, Tablet, By Mouth, Every 4 hours, PRN for Pain , Mild, (1-3), may give 325mg per patient preference and re-dose with 325mg within 4 hours, if needed. Patient should only receive a total of 650mg of Acetaminophen every 4 hours., Routine, 11/17... Start Date: 11/17/22 Stop Date: 11/19/22 Status: Discontinued ferrous sulfate 325 mg oral tablet 1 tablet = 325 mg, By Mouth, 3 times a day, # 270 tablet, 0 Refills, Maintenance, 10/19/18 7:59:55 EDT, Tablet Start Date: 10/19/18 Status: Ordered ibuprofen 800 mg oral tablet 800 mg, By Mouth, Every 8 hours, PRN, (4-6), may give 400mg per patient preference and re-dose [id number] within 8 hours if needed. Patient should only receive a total of 800mg of Ibuprofen every 8 hours., Refills 0, Maintenance, Pain , Moderate, 06... Start Date: 11/18/22 Status: Ordered Ibuprofen Tablet 800 mg, Tablet, By Mouth, Every 8 hours, PRN for Pain , Moderate, (4-6), may give 400mg per patientpreference and re-dose with 400mg within 8 hours if needed. Patient should only receive a total of 800mg of Ibuprofen every 8 hours., Routine, ... Start Date: 11/17/22 Stop Date: 11/19/22 Status: Discontinued Vitamin D3 5000 iu, By Mouth, Daily, 0 Refills, Maintenance, 04/07/20 10:15:00 EST Start Date: 04/07/20 Status: Ordered Problem List Condition Confirmation Course Effective Dates Status Health St atus Informant Obese class II Confirmed Active Postop check Confirmed Active Right thyroid nodule Confirmed Active Vaginal bleeding Confirmed Active Vital Signs Most recent to oldest [Reference Range]: 1 2 3 4 Height 160 cm (11/19/22 12:00 AM) 160 cm (11/18/22 4:03 PM) 160 cm (11/18/22 9:00 AM) Weight 93 kg (11/17/22 7:38 AM) 93 kg (11/17/22 6:02 AM) Oxygen Saturation [94-100 %] 97 % (11/19/22 12:00 AM) 97 % (11/18/22 12:00 AM) 97 % (11/17/22 8:00 PM) Pulse Rate [55-90 bpm] 65 bpm (11/19/22 8:18 AM) 73 bpm (11/19/22 12:00 AM) 94 bpm *H* (11/18/22 4:03 PM) Body Mass Index [18.5-24.99 kg/m2] 36.33 kg/m2 *>HHI* (11/17/22 6:02 AM) Blood Pressure [90-138/55-84 mm Hg] 140/65mm Hg *H* (11/19/22 8:18 AM) 137/74mm Hg (11/19/22 12:00 AM) 141/73mm Hg *H* (11/18/22 4:03 PM) Respiratory Rate [16-30 br/min] 18 br/min (11/19/22 8:18 AM) 16 br/min (11/19/22 12:00 AM) 18 br/min (11/18/22 11:29 PM) 18 br/min (11/18/22 11:29 PM) Temperature [96.8-100.4 DegF] 98.4 DegF (11/19/22 8:18 AM) 98.1 DegF (11/19/22 12:00 AM) 98.3 DegF (11/18/22 4:03 PM) Blood pressure sites Arm, right (11/17/22 6:02 AM) Arm, right (11/17/22 3:19 AM) Temperature Route Oral (11/19/22 8:18 AM) Oral (11/19/22 12:00 AM) Oral (11/18/22 4:03 PM) Dry Weight 93 kg (11/17/22 6:02 AM) History and physical note * Camilla Aviles CNM: PERFORM Event Display: History and Physical Hospital Authored Date: Patient: ??CHEMARIANNE SERNA ? Age:??37 Years?Sex:??Female?:??1985?? OB Reason for Admission OB Reason for Admission Reason for admission: PROM LMP/EGA/ELLA Gestational Age (EGA) and ELLA? * Note: EGA calculated as of 11/17/2022 ?? ELLA:??11/10/2022?EGA*:??41 weeks ? History?(6,0,0,6)?Method:??Last Menstrual Period??(02/03/2022) History of Present Illness here for ? SROM (yesterday 0630, clear) and UCs (about 2 am) Review of Systems Constitutional -??Neg,??no cough;??no sneeze;??no loss of taste;??feels well Endocrine -??Neg Breast -??Neg Resp - Neg, no SOB,?? Cardio - Neg, no palpitations OB?pos loss of fluid;??spotting bleeding;??yes contractions;??pos movement?? Urinary -??No dysuria, frequency, odor, hematuria Waterworks Chief Engineer -??No vaginal discharge, no itching, no odor, no lesions GI -??No nausea, no vomiting, no diarrhea Neuro -??Neg, no headaches, no visual changes, no dizziness Psych -??Neg, no depression or anxiety Physical Exam Vitals & Measurements HR:??96??(Peripheral)?? BP:??150/85?? SpO2:??99%?? HT:??160??cm?? Constitutional?? Appearance: Normal affect.?? Neurological/Psychiatric?? Orientation: Time, Place, Person.?? Affect: Normal.?? Heart Normal. RRR. Lungs Normal. CTA. Lymphatic?? Lymphatic: Normal exam.?? Skin?? Skin: Normal exam.?? Abdomen/GI?? Gravid.?? Obese.?? Not Tender.?? No Masses.?? Spec Exam no??pooling;??pos ferning;??pos nitrizine?? Gynecologic?? External Genitalia: no lesions Urethral meatus: Normal exam.?? Urethra: normal to palpation.?? Vagina: Normal exam, normal support, no lesions, no discharge.?? OB Assessment Baby A Baseline:125 Baseline Description:Normal, 110-160 bpm Baseline Variability:Moderate variability Accelerations:Present Deceleration:None Activity:Present Membranes ROM Date, Time:11/16/2022 06:30 EDT Amniotic Fluid Amount:Scant Amniotic Fluid Color/Description:Clear Cervical Position:Occiput anterior Estimated Weight:3800 gm Membrane Status:SROM Uterine Number of Contractions per 10 minutes2 Monitor Mode, UterineExternal Cervical Cervical Dilatation5 cm Cervical Zwxzjcgsjo13% Station-3 Assessment/Plan PROM (premature rupture of membranes) (O42.90):??11/15 @ 0630, confirmed by + nitrazine and pk, forebag felt GBS neg, VSS, Cat 1 tracing 5 cm which has been per her report since 11/[address] [facility] [address] Enriquez aware, PGY 1 ?? Elevated blood-pressure reading without diagnosis of hypertension (R03.0):??labs (p) ?? History of hemorrhage (Z87.59):??labs (p), IV blood on hold ( ) ?? Grand multipara in labor (O80):??see history PPH ?? AMA (advanced maternal age) multigravida 35+ (O09.529):??. ?? OB History History?(6,0,0,6)? # 1 ?Baby 1 ?Outcome Date:??02/15/2005?Outcome or Result:??Vaginal ?Gest Age:??Fullterm ? Outcome:??Live ? Sex:??Female ?? # 2 ?Baby 1 ?Outcome Date:??04/19/2007?Outcome or Result:??Vaginal ?Gest Age:??Fullterm ? Outcome:??Live ? Sex:??Female ?? # 3 ?Baby 1 ?Outcome Date:??10/14/2009?Outcome or Result:??Vaginal ?Gest Age:??Fullterm ? Outcome:??Live ? Sex:??Female ?? # 4 ?Baby 1 ?Outcome Date:??05/02/2013?Outcome or Result:??Vaginal ?Gest Age:??Fullterm ? Outcome:??Live ? Sex:??Female ?? # 5 ?Baby 1 ?Outcome Date:??04/04/2014?Outcome or Result:??Vaginal ?Gest Age:??Fullterm ? Outcome:??Live ? Sex:??Female ?? # 6 ?Baby 1 ?Outcome Date:??12/28/2017?Outcome or Result:??Vaginal ?Gest Age:??Fullterm ? Outcome:??Live ? Sex:??Male Labs Labs Labs & Tests Antibody Screen: Negative (04/26/22) Blood Type: B Positive (04/26/22) Chlamydia Trachomatis Amplified Probe: NEGATIVE (05/05/22) Glucose 3hr Gest Noris, +120 minutes: 132 mg/dL (08/21/22) Glucose 3hr Gest Noris, +180 minutes: 110 mg/dL (08/21/22) Glucose 3hr Gest Noris, +60 minutes: 158 mg/dL (08/21/22) Glucose 50 Gm, +60 Minutes:??138 mg/dL??High (08/16/22) Glucose Tolerance, Fasting:??103 mg/dL??High (08/21/22) Hct: 35.9 % (08/16/22) Hepatitis B Surface Antigen: NEGATIVE (04/26/22) Hepatitis C Ab: NEGATIVE (04/26/22) Hgb:??11.1 Gm/dL??Low (08/16/22) HIV 4th Generation Ab-Ag Result: NEGATIVE (04/26/22) RPR Titer Result: NOT INDICATED (08/16/22) Rubella IgG Ab: POSITIVE (04/26/22) Syphilis Screen by [facility]: NEGATIVE (08/16/22) Urine Culture: Urine Culture (05/05/22) Problem List Active Active Problem List Postop check: (Medical) : (Obstetric) (02/03/22) Right thyroid nodule: (Medical) Vaginal bleeding: (Medical) Procedure/Surgical History Right thyroid lobectomy: 04/12/20 Home Medications Cholecalciferol: 5000 iu, By Mouth, Daily Ferrous Sulfate: 325 mg = 1 tablet, By Mouth, 3 times a day Miscellaneous Rx: Isabloom(BCP)! tab, By Mouth, Daily Spironolactone: 25 mg, By Mouth, Daily Allergies NKA Family History No family history recorded. Plan OB Plan Feeding Plan: Breast milk & Formula (11/17/22) Patient Requests: Its a Girl (11/17/22) Hospital Progress note * Agatha Chery RN: PERFORM, SIGN, VERIFY Event Display: Progress Note Hospital Authored Date: Patient: MARIANNE CHE Age: 37 years Sex: Female : 1985 Associated Diagnoses: None Author: Agatha Chery RN pt instructed on bp monitoring at home with baby scripts complete discharge instructions reviewed id bands removed follow up appts discussed signs to report to ob and pedi reviewed all belongings packed discharged to home with * Agatha Chery RN: PERFORM, SIGN, VERIFY Event Display: Progress Note Hospital Authored Date: Patient: MARIANNE CHE Age: 37 years Sex: Female : 1985 Associated Diagnoses: None Author: Agatha Chery RN assumed care pt in room with plan for today discussed vs and assessment performed self carereviewed pt hoping for discharge this am signs to report to ob discussed care feeding and safety including safe sleep reviewed notified pedi would be here this am and follow up appts discussed supplies for home given * Dick Lyons MD: PERFORM Event Display: Progress Note Hospital Authored Date: [id number] Patient: ??MARIANNE CHE ? Age:??37 Years?Sex:??Female?:??1985?? LMP/EGA/ELLA Gestational Age (EGA) and ELLA? * Note: EGA calculated as of 11/17/2022 ?? ELLA:??11/10/2022?EGA*:??41 weeks ? History?(6,0,0,6)?Method:??Last Menstrual Period??(02/03/2022) Subjective In to check on patient for increased pressure. OB Assessment Baby A Baseline:125 Baseline Description:Normal, 110-160 bpm Baseline Variability:Moderate variability Accelerations:Present Deceleration:None Activity:Present Uterine Number of Contractions per 10 minutes4 Monitor Mode, UterineExternal Cervical Cervical Dilatation8 cm Cervical Tcmainqinq56% Station-1 Physical Exam Vitals & Measurements T:??97.7?F?? HR:??95??(Monitored)?? RR:??18?? BP:??131/81?? SpO2:??99%?? HT:??160??cm?? WT:??93??kg?? BMI:??36.33?? Assessment/Plan Assessment:?? at 41+0 admitted for PROM and early labor. GBS neg. s/p AROM of forebag with meconium stained fluid. Cat 1 tracing. ?? Elevated blood-pressure reading without diagnosis of hypertension (R03.0):? High mild-normo BPs Asymptomatic (p) HELLP labs ?? History of hemorrhage (Z87.59):? 2u pRBCs on hold ?? PROM (premature rupture of membranes) (O42.90):? -Normal labor progression -Continuous monitoring -Re-evaluation in 2 hrs or PRN ?? OB History History?(6,0,0,6)? # 1 ?Baby 1 ?Outcome Date:??02/15/2005?Outcome or Result:??Vaginal ?Gest Age:??Fullterm ? Outcome:??Live ? Sex:??Female ?? # 2 ?Baby 1 ?Outcome Date:??04/19/2007?Outcome or Result:??Vaginal ?Gest Age:??Fullterm ? Outcome:??Live ? Sex:??Female ?? # 3 ?Baby 1 ?Outcome Date:??10/14/2009?Outcome or Result:??Vaginal ?Gest Age:??Fullterm ? Outcome:??Live ? Sex:??Female ?? # 4 ?Baby 1 ?Outcome Date:??05/02/2013?Outcome or Result:??Vaginal ?Gest Age:??Fullterm ? Outcome:??Live ? Sex:??Female ?? # 5 ?Baby 1 ?Outcome Date:??04/04/2014?Outcome or Result:??Vaginal ?Gest Age:??Fullterm ? Outcome:??Live ? Sex:??Female ?? # 6 ?Baby 1 ?Outcome Date:??12/28/2017?Outcome or Result:??Vaginal ?Gest Age:??Fullterm ? Outcome:??Live ? Sex:??Male Active Problem List Active Problem List Obese class II: (Medical) Postop check: (Medical) : (Obstetric) (02/03/22) Right thyroid nodule: (Medical) Vaginal bleeding: (Medical) Medications Medications (3) Active SCHEDULED: (1) Ferrous Sulfate 325 mg EC Tablet (ferrous sulfate 325 mg oral tablet) ??325 mg, By Mouth, 3 times aday CONTINUOUS: (0) PRN: (2) Calcium Carbonate 500 mg (Calcium 200 mg) Chewable Tablet (Tums 500 mg Tablet) ??1,000 mg 2 tablet,Chew, 3 times a day Ondansetron 2mg/mL Inj (2mL Vial) (Ondansetron Inj) ??4 mg, IV Push, Every 8 hours Note * Agatha Chery RN: PERFORM Event Display: Discharge/Transfer Note Hospital Authored Date: [id number] Nursing Discharge Note Entered On: 11/19/2022 12:00 EDT Performed On: 11/19/2022 11:45 EDT by Agatha Chery RN Nursing Discharge Note 2 Discharge Time : 11/19/2022 11:45 EDT Discharge Level of Care at Discharge : Home/Half-Way/Foster Care Patient Left Unit Via : Ambulatory Patient Accompanied Off Unit with : Significant other DC Instructions Provided & Signed by Pt : Yes Patient Understands D/C Instructions : Yes Patient Instructions Discharge Signed : Yes Did Pt have Specialty Bed or Wound Vac : No Agatha Chery RN - 11/19/2022 11:59 EDT * Agatha Chery RN: PERFORM Event Display: Patient Education/Instruction Authored Date: [id number] Inpatient Adult Discharge Instructions [address] [address] Name: MARIANNE CHE : 1985 Visit: 11/17/2022 04:20:00 Current Date: 11/19/2022 10:29 Account: [id number] Inpatient Adult Discharge Instructions We would like to thank you for allowing us to assist you with your healthcare needs. The following includes patient education materials and information regarding your injury/illness. Our entire staffstrives to provide an excellent experience for our patients and their families. PLEASE ENSURE YOU FOLLOW-UP PER THE INSTRUCTIONS BELOW! ?? YOUR OPINION IS IMPORTANT TO US! Please complete the survey you may receive by mail or email. Your feedback will be used to make improvements to the healthcare experiences of our patients and their families. Surveys are administered by [employer] ?? If further treatment with your primary care physician or another doctor is recommended, it is important for you to keep the appointment. Call your primary care physician or return to the Emergency Department immediately if your condition worsens, fails to improve, or new symptoms develop. If you need to find a doctor, you can call [facility] [employer] [facility] [employer] for a referral at [phone] or toll free at [phone] or log in to [email or web address].. ?? You can view and manage your care through the patient portal or by using a health care zay of your choosing. [employer] is a website that allows you to securely view your medical information including your hospital discharge summary, office visit summaries, medications and follow-up visits. You can also request appointments, renew medications, and request access to your medical information using a health care zay of your choosing, or just ask a question. You can enroll at [email or web address] or register during your next office visit. You have been discharged from [facility], Patient Care Unit: [facility]. If you have any questions regarding these instructions after you leave, please call us and we will be happy to assist you. [facility] Your Care Team Attending Physician Mina CERVANTES, Seble Discharging Providers Anthony PULIDO, Ann Marie Ch Reason for Admission PROM Your Diagnosis Indication for care in labor and delivery, antepartum PROM (premature rupture of membranes) History of hemorrhage Elevated blood-pressure reading without diagnosis of hypertension Grand multipara in labor AMA (advanced maternal age) multigravida 35+ state Tests Performed Below is a partial list of the tests performed during your hospitalization. You may have had other tests and procedures not included in this list. Please discuss all test results with your provider. ALT AST BUN CBC Creatinine Type and Screen Urine Protein/Creatinine Ratio?-- Results Pending -- You will be contacted within 72 hours with your results. Primary Care Provider Zion Nieves MD , Monica Advance Directive Health Care Proxy on File Yes - Health Care Proxy Discharge Vitals Temperature: 98.4 DegF Height: 160 cm Pulse Rate: 65 bpm Weight: 93 kg Respiratory Rate: 18 br/min Body Mass Index:??36.33 kg/m2??Critical Systolic Blood Pressure:??140 mm Hg??High Body surface area: 2.03 Diastolic Blood Pressure: 65 mm Hg ?? Oxygen Saturation: 97 % ?? Studies Pending All tests and labs ordered during this hospital stay have been completed unless listed below. Please discuss all pending results with your provider listed above in these instructions. ?? Protein/Creatinine Ratio Urine (Urine Protein/Creatinine Ratio) RBCs on Hold What to do next Instructions From Your Doctor Discharge Orders Instructions from your Care Team Discharge Care Instructions for the New Mom?? Please take a few moments to read through these helpful instructions before you leave the hospital.??Your nurse will be glad to answer any questions you may have. ??You can also find this and more information throughout the purple??Becoming a Family??booklet,??[facility]???[facility] New Beginnings Guide??and the?? Consultation Services Guide??given to you after the of your baby. ??You may also phone our nurses stations if you have further questions. ??[facility]: ??First Floor ([phone]), Second Floor ([phone]). ?? Please call your provider if you have any questions or concerns ??before your next appointment. For ongoing support??please?Like?us on our Facebook page?[facility]???[facility] New Beginnings?and sign up for our email newsletter at??[email or web address]. ??News and information will be sent to you??until your baby???s third birthday. Instructions for the New Mother Activity:?? For the next 2 weeks at home?no heavy lifting, avoid unnecessary stair climbing, and no driving (especially if you are taking medicine that may make you sleepy or feel that you are sleep deprived). ?? For the next 4-6 weeks - no tampons, no douches, no sexual intercourse. Use your vishnu bottle to rinse your perineum until your vaginal flow stops. ??If you have stitches in your bottom, they generally dissolve within 7-10 days. ??Apply Tucks/witch flaco pads until your soreness subsides. ??Use your bathroom at home every 3 to 4 hours, rinse, and change your pads. Warm showers feel great on achy muscles, sore backs and sore bottoms. Exercise: Walking is the best form of exercise. ??Wait until your follow up appointment with your provider in4-6 weeks before engaging in more strenuous activity. Diet: Drink plenty of fluids to avoid constipation and to help support your recovery. Eat plenty of iron rich foods such as red meat, iron fortified cereals like Total and Cream of Wheat, raisins, prunes, greens and spinach. ??These will help to build your blood count back up as all women lose some blood after delivery. ??Also add foods rich in Vitamin C such as strawberries, oranges, papayas, kale and flores peppers. Continue to take your vitamins if you are . ??If you are not follow the instructions of your provider. ??If you were prescribed iron supplements such as ferrous sulfate, it is important to continue these until your doctor or digital content specialist tells you to stop. Breast Care for Nursing Mothers: Wear a comfortable fitting, supportive nursing bra. ??An underwire bra is not recommended. Express drops of breast milk and rub over your nipples and areola (brown area) before and after each feeding to protect and heal sensitive skin and then air dry your nipples. ??If you are experiencing any soreness, you may purchase nipple cream such as TenderCare or Lansinoh. ??Use it in the following manner: ??finish your feeding or pumping session, self-express colostrum onto your nipple and air dry, apply the nipple cream to the nipple and areola. ??Use only small amounts for best results. If you are having difficulty getting the baby to latch onto the breast due to swelling of the areola, try applying pressure with your fingers for a couple of minutes above and below your nipple and walk your fingers outward softening the area and pushing the swelling away. ??This technique is knownas reverse pressure softening. ??For demonstrations of this and other techniques such as the Steen Hand Expression technique, please refer to the resources section of the Consultation Services Guide that you received from services.?? When your milk first comes in, usually within 3 to 5 days after delivery, you may experience engorgement. ??Your breasts may become swollen and very tender. ??Cold compresses work great to help with discomfort and reduce swelling. It will get better in a couple of days. ??Continue to nurse your baby frequently. ?? Call [facility]???s Consultation Service at [phone], press 1 to schedule an outpatient appointment or press 3??and a bmw sales consultant will return your call that day or the next if you call after 3pm. Breast Care for Bottle Feeding Mothers: Engorgement may occur within the first week after delivery. ??Your breasts may become hard and verytender. ??A cool compress of cleaned raw green cabbage leaves applied to the breast and changed as leaves wilt has been proven helpful for many women. ??Ice packs or frozen bags of peas also work nicely to ease the discomfort. ??The soreness will only last a couple of days. Keep your back turned to the water while showering to decrease breast stimulation. Wear a snug fitting bra such as a sports bra. ?? Control: Your doctor or digital content specialist will discuss control methods with you [facility] or at your checkup. ??Be sure to let your provider know if you are . ?? Pain Management: Cramping after is common and increases in strength with each baby you have. ??If you experience painful cramps, and have no allergies to acetaminophen (Tylenol) or ibuprofen (Motrin), you may continue to take these medications as you did in the hospital. ??Ibuprofen is also helpful with back aches following epidurals, perineal pain following a vaginal delivery, and moderate incisional pain after a section or a tubal ligation. ?? If you experience gas distention, especially after surgery, you may take an over the counter medication called simethicone. ??Take these chewable tablets 4 times a day as needed and directed on the package. ??Keep moving. ??Walking or rocking in a chair, will help to move the gas along. ??Perico tea made with heated perico nuno (instead of water) and a tea bag, stirred to dissolve carbonation (bubbles) is a helpful drink to soothe a gassy stomach. Warning Signs of a Problem to Notify Your Doctor or Chief Compressor Station Engineer of: Heavy vaginal bleeding?which is??soaking a pad every hour??with bright red blood. Passing blood clots the size of an egg or larger. ?? A temperature greater than or equal to 100.4 especially if accompanied by any of the following symptoms?painful, frequent urination; extreme back or flank pain; lower belly pain with a foul smell to your vaginal flow; a red hard hot area on your breast. ?? Severe headache that does not go away after taking acetaminophen or ibuprofen. ?? A headache that changes your vision, including seeing spots or blurring. Right sided upper abdominal pain along the rib cage area. Pain in your legs that is warm and tender to the touch. depression signs may include?loss of interest in your baby, weepiness, difficulty focusing, weight loss with no appetite, exhaustion, feeling overwhelmed or anxious, feelings??of despair, or thoughts of harming yourself or your baby. ??These symptoms are important and should be discussed with your doctor or digital content specialist. depression may develop over a period of time and needs prompt medical attention. ??Do not suffer in silence. ??In both the??Becoming a Family??booklet and the??[facility]??New Beginnings Guide??there is a screening tool used to identify women at risk, called the [place] Scale which you have taken in the office prior to delivery and again during [facility]. ??Three to four weeks after your delivery, and before your check with your provider, take this test and share your results with your provider. ??Be sure to mention any score of 10 or more. ?? Many women, and even some partners, may experience the?baby blues?? . ??This is a state of feeling overwhelmed and weepy. ??Discomfort from childbirth, hormonal changes, exhaustion, changes to your body and lifestyle are a few of the things that contribute to the highs and lows new parents go through. ??Don???t be afraid to ask your partner or family and friends for some help at home so you can get some rest and a few minutes to yourself. ??The blues will quickly pass. Personal Safety: Every person has the right to feel safe at home and live free from physical or emotional harm. ??Ifyou have suffered mental or physical abuse at home, you are not alone. ??There is help. ??Please call [employer] or the [employer] Program at [phone]. You Need to Schedule the Following Appointments Follow Up with??[facility] Why: follow up in 4 weeks Discharge Medications MARIANNE CHE :1985 Visit Date:11/17/2022 Medications: Please continue your medications until treatment is completed or stopped by your provider. Medications not listed below should be discontinued. Discuss any questions related to medications with your provider. What How Much When Instructions Next Dose New Acetaminophen (acetaminophen 325 mg oral tablet) 650 Milligram Oral Every 4 hours as needed for Pain , Mild (1-3), may give 325mg per patient preference and re-dose with 325mg within 4 hours, if needed. ?? Patient should only receive a total of 650mg of Acetaminophen every 4 hours. ?? New Ibuprofen (ibuprofen 800 mg oral tablet) 800 Milligram Oral Every 8 hours as needed for Pain , Moderate (4-6), may give 400mg per patient preference and re-dose with 400mg within 8 hours if needed. ?? Patient should only receive a total of 800mg of Ibuprofen every 8 hours. ?? Unchanged Cholecalciferol (Vitamin D3) 5000 iu Oral Daily Unchanged Ferrous Sulfate (ferrous sulfate 325 mg oral tablet) 1 tab(s) Oral 3 times a day ?? What How Much When Comments Stop Taking Miscellaneous Rx (Misc Rx) Isabloom(BCP)! tab Oral Daily Stop Taking Spironolactone 25 Milligram Oral Daily Test Results Below is a partial list of the most recent Laboratory test results done prior to this discharge. You may have had other tests and procedures not included in this list. Please discuss all test resultswith your provider. Est Creatinine Clearance - 107.19 mL/min (11/17/2022) RBC Available - RE (11/17/2022) RBC Unit ID - [id number] (11/17/2022) ALT (11/17/2022) ???ALT (SGPT) - 10 units/L AST (11/17/2022) ???AST (SGOT) - 18 units/L BUN (11/17/2022) ???BUN - 10 mg/dL CBC (11/17/2022) ???WBC - 7.8 k/mm3???RBC - 4.04 m/mm3???Hgb - 10.5 Gm/dL???Hct - 34.3 %???MCV - 84.9 femtoliters???MCH - 26.0 pg???MCHC - 30.6 g/dL???Platelet Count - 188 k/mm3???RDW-SD - 45.4 femtoliters???MPV - 11.7 femtoliters???Nucleated RBC (Automated) - 0.0 #/100 WBC'S???Abs. NRBC - 0.0 k/mm3 Creatinine (11/17/2022) ???Creatinine-Blood - 0.6 mg/dL???Estimated GFR Creatinine - 119 ML/MIN/1.73 M2 Type and Screen (11/17/2022) ???Blood Type - B Positive???Antibody Screen - Negative Allergies (NKA means No Known Allergies) NKA Problems Active Problems??(5) Obese class II?? Postop check? Right thyroid nodule?? Vaginal bleeding?? Education Materials Below is the list of Educational Leaflet Providered with your Discharge Instructions. Valuables and Belongings I fully understand and agree that [facility] accepts no responsibility for all my personal property including clothing, toilet articles, radios, jewelry, dentures, hearing aids, rings, money, or any other property that is in my possession or is brought to me after admission. I understand certain valuables may be placed in a hospital safe for a short period of time. I understand that the hospital is not liable for loss or damage due to accident, fire, or other natural occurrence while said property is in the safe. I accept full responsibility for any personal property that I keep with me, and will not hold the hospital responsible in case of loss or disappearance. I acknowledge that i have been encouraged to send valuables and belongings home. ?? Review of Valuable and Belonging List: With patient, With family Date for Pt to Sign Valuables/Belongings: 11/17/22 06:05:00 ?? Other Discharge Information ? Pulmonary Rehab Status?? Pulmonary Rehab Discharge Status?? Respiratory Rate: 18 br/min ? Common Emergency Awareness Tips IS IT A STROKE? Act FAST and Check for these signs: FACE Does the face look uneven? ARM Does one arm drift down? SPEECH Does their speech sound strange? TIME Call at any sign of stroke ?? Heart Attack Signs Chest discomfort: Most heart attacks involve discomfort in the center of the chest and lasts more than a few minutes, or goes away and comes back. It can feel like uncomfortable pressure, squeezing, fullness or pain. Discomfort in upper body: Symptoms can include pain or discomfort in one or both arms, back, neck, jaw or stomach. Shortness of breath: With or without discomfort. Other signs: Breaking out in a cold sweat, nausea, or lightheaded. Remember, MINUTES DO MATTER. If you experience any of these heart attack warning signs, call to get immediate medical attention! ?? Smoking can increase your chances of developing chronic health problems and can cause harmful effects to other family members in your house. If you smoke, you are strongly encouraged to quit. Please call [employer] at [phone] or [phone] ([phone]) or log in to [email or web address] for referrals to smoking cessation programs. ?? 175 Suicide & Crisis Lifeline is available 25/12 if you or someone you know needs to find a reason to keep living. By calling 552 you'll be connected to a skilled, trained counselor at a crisis center in your area. INPATIENT DISCHARGE INSTRUCTIONS SIGNATURE PAGE CHINEDUJULISAJOSE ANGELLISY Location:[facility] Registration Date and Time:11/17/2022 04:20 EDT Primary Care Physician: Zion Nieves MD , Lucero Kim, Attending Physician: Mina CERVANTES, Seble, I MARIANNE CHE, have received the above patient education materials/instructions and have verbalized understanding. If ambulance or transport services are being used I further acknowledge beinggiven a choice of service. ?? If you need to contact me, please call me at this number: . Patient/Paint Formulator Name: Patient/Paint Formulator Signature: Relationship to Patient: Witness Name/Signature: Date: * Lynne Carolina: PERFORM Event Display: Care Team Progress Note Authored Date: [id number] Patient: ??JULISA CHEJOSE ANGELLISY ? Age:??37 Years?Sex:??Female?:??1985?? Subjective cart rounds ??1 assessment for assistance Patient??has some??previous experience Feeding sheet??is adequately filled out with formula feeding Patient??has obtained personal pump Assessment/Plan Patient notes she is mostly formula feeding and has brought the baby to the breast a few time.?? Patient notes baby latches and just feeds for a little bit and then baby is supplemented with formula.?? Patient states she does not need any support latching the baby.?? encouraged patient to try and bring the baby to breast before she supplements??and her supply will depend on how much she stimulates at the breast. ?? Discussed: ?? Stimulation and Milk Supply Education Breast milk supply is created in the first two weeks Stimulate every 2-3 hours for optimal supply Don't go longer than 4 hours without stimulation Stimulation includes hand expression, latching or pumping Hormones release with initial touch, therefore frequent touch is supportive ?? OB Summary : 7 Parity: 6 . Baby A - Weight: 4.335 kg Baby A - Date, Time of : 11/17/22 09:46:00 Baby A - Gender: Female Baby A - Complications: Meconium stained fluid EGA at Documented Date, Time: 41 weeks Weight at Delivery Baby A - Delivery Type: Vaginal Delivery Complications: None OB History History?(6,0,0,6)? # 1 ?Baby 1 ?Outcome Date:??02/15/2005?Outcome or Result:??Vaginal ?Gest Age:??Fullterm ? Outcome:??Live ? Sex:??Female ?? # 2 ?Baby 1 ?Outcome Date:??04/19/2007?Outcome or Result:??Vaginal ?Gest Age:??Fullterm ? Outcome:??Live ? Sex:??Female ?? # 3 ?Baby 1 ?Outcome Date:??10/14/2009?Outcome or Result:??Vaginal ?Gest Age:??Fullterm ? Outcome:??Live ? Sex:??Female ?? # 4 ?Baby 1 ?Outcome Date:??05/02/2013?Outcome or Result:??Vaginal ?Gest Age:??Fullterm ? Outcome:??Live ? Sex:??Female ?? # 5 ?Baby 1 ?Outcome Date:??04/04/2014?Outcome or Result:??Vaginal ?Gest Age:??Fullterm ? Outcome:??Live ? Sex:??Female ?? # 6 ?Baby 1 ?Outcome Date:??12/28/2017?Outcome or Result:??Vaginal ?Gest Age:??Fullterm ? Outcome:??Live ? Sex:??Male Active Problem List Active Problem List Obese class II: (Medical) Postop check: (Medical) : (Obstetric) (02/03/22) Right thyroid nodule: (Medical) Vaginal bleeding: (Medical) Home Medications Acetaminophen: 650 mg, By Mouth, Every 4 hours, PRN (Pain , Mild), (1-3), may give 325mg per patient preference and re-dose with 325mg within 4 hours, if needed. ?? Patient should only receive a total of 650mg of Acetaminophen every 4 hours. Cholecalciferol: 5000 iu, By Mouth, Daily Ferrous Sulfate: 325 mg = 1 tablet, By Mouth, 3 times a day Ibuprofen: 800 mg, By Mouth, Every 8 hours, PRN (Pain , Moderate), (4-6), may give 400mg per patient preference and re-dose with 400mg within 8 hours if needed. ?? Patient should only receive a totalof 800mg of Ibuprofen every 8 hours. Medications Medications (6) Active SCHEDULED: (1) Ferrous Sulfate 325 mg EC Tablet (ferrous sulfate 325 mg oral tablet) ??325 mg, By Mouth, 3 times aday CONTINUOUS: (0) PRN: (5) Acetaminophen 325 mg Tablet (Acetaminophen Tablet) ??650 mg, By Mouth, Every 4 hours Calcium Carbonate 500 mg (Calcium 200 mg) Chewable Tablet (Tums 500 mg Tablet) ??1,000 mg 2 tablet,Chew, 3 times a day Docusate Sodium 100 mg Capsule (Docusate Sodium Capsule) ??100 mg 1 capsule, By Mouth, 2 times a day Ibuprofen 800 mg Tablet (Ibuprofen Tablet) ??800 mg, By Mouth, Every 8 hours Ondansetron 2mg/mL Inj (2mL Vial) (Ondansetron Inj) ??4 mg, IV Push, Every 8 hours * Anthony PULIDO, Ann Marie Ch: PERFORM Event Display: Discharge/Transfer Note Hospital Authored Date: [id number] Patient: ??MARIANNE CHE ? Age:??37 Years?Sex:??Female?:??1985?? Admit Date Admission Date: 11/17/2022 Discharge Date 11/18/22 OB Reason for Admission OB Reason for Admission Reason for admission: [facility] Course Patient admitted in labor and had uncomplicated vaginal delivery. She had uncomplicated course and was meeting milestones on day of discharge.?? On day of discharge Denies Headache, Visual Changes, RUQ pain, SOB, Chest Pain. Her lochia is minimal. she is tolerating po, ambulating and having minimal pain. She is voiding, passing flatus and and bottle feeding. She was discharged home on PPD#1. Objective/Physical Exam on Day of Discharge Vitals & Measurements T:??97.7?F?? HR:??80??(Peripheral)?? RR:??18?? BP:??124/72?? SpO2:??97%?? HT:??160??cm?? WT:??93??kg?? BMI:??36.33?? General: Well-appearing, ambulating without difficulty, mood and affect appropriate, AAOx3. Cardiovascular: No edema noted. Lungs: Normal respiratory effort. Breasts: Soft, no redness, nipples intact - no cracking or bleeding noted. Abdomen: Soft, non-tender, non-distended. Fundus firm, midline. Perineum: Well-approximated. No hematoma, no edema. Vishnu-pad in place, small amount of lochia rubranoted on pad. Assessment/Plan/Discharge Diagnosis 37yo now P7 PP day 1 Patient meeting??PP milestones & is stable for discharge. Vital signs appropriate. Continue routine PP care & comfort measures. Reviewed discharge teaching (including s/sx: PreE, mastitis, PE, endometritis, UTI, abnormal bleeding/hemorrhage, DVT, and depression/anxiety). Patient will call office this week to schedule routine 6wk PP visit with MARSHALL PULIDO. Discussed with patient that even without return of typical menses, is possible immediately post . Patient plans for abstinence or condoms if sexually active??ahead of 6wk PP visit - at which time ongoing plan for contraception will be discussed and implemented. Future Appointments Pt to call and schedule 6 week pp visit Delivery Summary Delivery Summary Maternal Information ??Labor Information ?Baby A ?Labor Onset Methods: ??Spontaneous ??Delivery Information ?Gestational Age at Delivery: ??41 weeks ?Anesthesia OB: ??Epidural ??11/17/22 11:57:57, Epidural ??11/17/22 09:38:14 ?Obstetrical Laceration: ??Perineum intact ?Delivery Complications: ??None ?Blood Loss(ml): ??500 mL ? Baby A ??Delivery Information ?Delivery Type: ??Vaginal ?Date, Time of : ??11/17/22 09:46:00 ? Position: ??Supine ?Foot of bed removed: ??No ?Delayed Cord Clamping: ??Yes ?Placenta Delivery Method: ??Spontaneous ?Placenta Appearance: ??Normal ?Placenta to Pathology: ??No ??Care Team ?Attending Provider: ??Seble Enriquez MD ?Delivery Physician: ??Dick Lyons MD ?termite renewal inspector #1: ??Shanda Child RN ?termite renewal inspector #2: ??Ainsley Bravo RN ?Scientific Laboratory Supervisor: ??Sandro Mason MD ?Anesthesiology Attending: ??Kathrine CERVANTES, Marvin ?Other Delivery Clinicians: ??loco villa RN; fernandez olguin RN; Josephine mccormick RN ?Time NICU Team Called: ??11/17/22 09:45:00 ??Labor Information ?ROM Date, Time: ??11/17/22 07:47:00 ?ROM to Delivery Total Time: ??119 min ? monitoring: ??External monitor ?? Information ? Outcome: ??Live ? Position: ??Left occiput anterior ? Weight: ??4.335 kg ? Score 1 minute: ??8 ? Score 5 minute: ??9 ? Score 10 minute: ??9 ?Transferred To: ?? Care area with Family ?Umbilical Cord Description: ??3 vessel cord ? Complications: ??None ?Gender: ??Female ? Discharge Medications ???Acetaminophen (acetaminophen 325 mg oral tablet)???Cholecalciferol (Vitamin D3)???Ferrous Sulfate (ferrous sulfate 325 mg oral tablet)???Ibuprofen (ibuprofen 800 mg oral tablet) Stop taking these medications ???Miscellaneous Rx (Misc Rx)???Spironolactone Feeding Method Feeding Method: , Formula (11/17/22 15:30:00) * Anthony PULIDO, Ann Marie Ch: PERFORM Event Display: Discharge/Transfer Note Hospital Authored Date: Pt to stay another night for DC home PP day #2. Pt meeting PP milestones stable for dc home Patient Care team information Care Team Personnel Name: Zion Nieves MD , Lucero Kim Position: Reference Physician Member Role: PCP Address: Address: [address] [place] [address]- Care Team Related Persons Name: MARIANNE CHE Address: [address] Address: [address] [address] Name: ELIZABETH FOX Address: [address] [address]
== END 2023-11-08 15:51 | disposition home or self-care (01) ==
LOC: HO.SSS 13:37
PROVIDERS: Nurse Practitioner; PCP Physician Assistant; Visit Provider Surgery
PROC: (CPT 49593; principal; 2023-11-08 15:10)
DX: K42.9 Umbilical hernia without obstruction or gangrene (principal)
CPT/HCPCS: 49593; 81025; 88302; C1781; J0690; J1885; J2405; J2704; J2795; J3010

== ENCOUNTER → 2023-11-08 13:36 | Outpatient (BNV) | payer OTHER, SELFPAY | PROVIDERS: PCP Physician Assistant; Visit Provider Surgery | DX: K42.9 Umbilical hernia without obstruction or gangrene (principal) | CPT/HCPCS: 49593 ==

== ENCOUNTER 2023-11-19 14:09 | Outpatient (AMB) | payer OTHER, SELFPAY ==
--- NOTE | 2023-11-19 14:15 | MHC.OFFVIS ---
Vital Signs 11/19/23 14:16 Height 5 ft 3 in Weight 218 lb 11.177 oz BMI 38.7 Pulse 72 Intake Visit Reasons: s/p open Umbilical hernia repairw/mesh Intake Note: Pt is seen in office for post op assessment post umbilical hernia repair. Pt c/o: upset stomach, sore and tender Interrelated Special Education Teacher Required: No Accompanied by: Other Relationship Allergies No Known Allergies [No Known Allergies*] Allergy (Verified 11/19/23 14:16) HPI Comments Details: Patient presents with her significant other. Status post umbilical hernia repair. Aside from incisional discomfort which is improving, she is otherwise doing well. Tolerating a diet. Having regular bowel habits. Increase her activity level. [facility] Medical History Skin lesion Hair loss Physical exam COVID-19 Right thyroid nodule Anemia Non-toxic multinodular goiter Surgical History Umbilical hernia H/O partial thyroidectomy Hx of cholecystectomy Family History Father No problems noted. Mother Diabetes Social History Housing: House Alcohol intake: current Alcohol intake frequency: holidays/special occasions only Alcohol type: wine and hard liquor Comment: COUNT CORRECT Patient Tobacco Use Status: Never used Tobacco e-Cigarette/Vaping Use: Never Used Second Hand Smoke Exposure: Yes service: No Current occupational status: employed Current occupation: call center Cognitive needs: No Hearing needs: No Vision needs: No Female Reproductive History Menstrual Age of Menarche: 10 Physical Exam Vital Signs: Last Vital Signs Pulse 72 11/19/23 14:16 BMI result Body Mass Index 38.7 GI Other: Abdomen is soft, benign, incision clean dry and intact healing well Assessment & Plan Assessment & Plan (1) Postop check: Code(s): Z09 - Encounter for follow-up examination after completed treatment for conditions other than malignant neoplasm Category: Surgical Plan Patient has been given local instructions, a note to commence work and when week's time with 2 weeks light duty, and we will otherwise follow-up p.r.n.. All questions answered. Coding Level of Care Code Global (57616) Diagnoses Postop check Z09
[2023-11-19 14:16] VITALS: PULSE 72; BMI 38.7
== END 2023-11-19 14:26 | disposition home or self-care (01) ==
PROVIDERS: PCP Internal Medicine; Visit Provider Surgery
DX: Z09 Encounter for follow-up examination after completed treatment for conditions other than malignant neoplasm (principal)
CPT/HCPCS: 99212

== ENCOUNTER → 2023-11-19 14:09 | Outpatient (BNVA) | payer OTHER, SELFPAY | PROVIDERS: PCP Internal Medicine; Visit Provider Surgery | DX: Z09 Encounter for follow-up examination after completed treatment for conditions other than malignant neoplasm (principal) | CPT/HCPCS: 99212 ==

== ENCOUNTER 2025-01-26 14:25 | Outpatient (AMB) | payer OTHER, SELFPAY ==
[2025-01-26 14:49] VITALS: BP 118/70; PULSE 76; RESP 18; O2SAT 96; BMI 38.8
--- NOTE | 2025-01-26 14:49 | A.OFFPC_ITS ---
Vital Signs 01/26/25 14:49 Height 5 ft 3 in Weight 219 lb 4 oz BMI 38.8 BP 118/70 Blood Pressure Location Lt brachial Position Sitting Respiration 18 Pulse 76 Pulse Source Pulse Oximeter Temp Source Temporal Artery Scan Pulse Oximetry (%) 96 Oxygen Delivery Method Room Air Intake Visit Reasons: annual exam Block Operator Required: No Accompanied by: Self / Same As Patient Allergies No Known Allergies (No Known Allergies*) Allergy (Verified 01/26/25 15:36) Medication List - Last Reconciled 01/26/25 by Lucero Nieves MD cetirizine (Zyrtec) 10 mg PO DAILY PRN 30 days hydrochlorothiazide 12.5 mg PO Q OTHER DAY 30 days hydrocodone-acetaminophen 5-325 mg 1 tab PO Q4-6H PRN Tobacco use date assessed: 01/26/25 Dental Screening Dental Screen Date: 01/26/25 Did you have a dental visit in the last 12 months?: Yes Did you have a dental problem in the last 6 months where you did not have access to dental care?: No Was dental information given to patient?: Patient has dentist HPI HPI Comments History of Present Illness Details The patient is a 39-year-old female presenting with a physical exam and various symptoms including gastrointestinal bloating, knee pain, and hair loss. The patient reports gastrointestinal symptoms characterized by bloating and pain, particularly after consuming certain foods. These symptoms have been persistent and occasionally lead to discomfort. The patient experiences knee pain, which she attributes to aging, but notes that it has been significant enough to warrant attention. She has not been on any medication for this issue. The patient also reports hair loss and inquires if dermatology could address this concern. She has not sought prior treatment for this issue. Her medical history includes umbilical hernia repair, partial thyroidectomy, and cholecystectomy. She had a vaginal delivery in September and is not currently . The patient does not smoke and consumes alcohol only on special occasions. Her family history includes diabetes in her mother. [facility] Medical History (Updated 01/26/25 @ 15:49 by Lucero Nieves MD) Skin lesion Hair loss Physical exam COVID-19 Right thyroid nodule Anemia Non-toxic multinodular goiter Surgical History Umbilical hernia H/O partial thyroidectomy Hx of cholecystectomy Family History Father No problems noted. Mother Diabetes Social History Housing: House Alcohol intake: current Alcohol intake frequency: holidays/special occasions only Alcohol type: wine and hard liquor Comment: COUNT CORRECT Patient Tobacco Use Status: Never used Tobacco e-Cigarette/Vaping Use: Never Used Second Hand Smoke Exposure: Yes service: No Current occupational status: employed Current occupation: call center Cognitive needs: No Hearing needs: No Vision needs: No Female Reproductive History Menstrual Age of Menarche: 10 Questionnaire PHQ-9 Over the last 2 weeks, how often have you been bothered by any of the following problems? 1. Little interest or pleasure in doing things: not at all 2. Feeling down, depressed, or hopeless: not at all 3. Trouble falling or staying asleep, or sleeping too much: not at all 4. Feeling tired or having little energy: more than half the days 5. Poor appetite or overeating: not at all 6. Feeling bad about yourself - or that you are a failure or have let yourself or your family down: not at all 7. Trouble concentrating on things, such as reading the newspaper or watching television: not at all 8. Moving or speaking so slowly that other people could have noticed. Or the opposite - being so fidgety or restless that you have been moving around a lot more than usual: not at all 9. Thoughts that you would be better off or of hurting yourself in some way: not at all Total score: 2 Depression Screening Interpretation: Negative Depression Screening Done: Yes 39109 - PHQ-9 Billing: Yes Source: Developed by Drs. Kimani Marte, Leticia Gillespie, Modesto Quezada and colleagues, with an educational uma from [employer]. Thrive Questionnaire Date Thrive assessed: 01/26/25 I am a: Patient What is your living situation today?: I have a steady place to live Within the past 12 months, did the food you bought not last and you didn't have the money to get more?: Never true Within the past 12 months, did you worry whether your food would run out before you got money to buy more?: Never true Do you have trouble paying for medicines?: No Do you have trouble getting transportation to medical appointments?: No Do you have trouble paying your heating and electricity bill?: I choose not to answer this question Do you have trouble taking care of your child, family member or friend?: No Do you have trouble with day-to-day activities such as bathing, preparing meals, shopping, managing finances, etc.?: No Are you currently unemployed and looking for a job?: No Are you interested in more education?: No Please select the resources that you would like help with: None Currently or been in a relationship where the following occur: No concerns reported THRIVE Score: 0 AUDIT C Alcohol Use Questionnaire (AUDIT-C) 1. How often do you have a drink containing alcohol?: Never 3. How often do you have six or more drinks on one occasion?: Never Total Score: 0 Score Reviewed/Action Taken: No JAILENE-7 AMB Questionnaire JAILENE-7 Date JAILENE - 7 assessed: 01/26/25 Feeling nervous, anxious, or on edge: 0 = Not at all Not being able to stop or control worryin = Not at all Worrying too much about different things: 0 = Not at all Trouble relaxin = Not at all Being so restless that it is hard to sit still: 0 = Not at all Becoming easily annoyed or irritable: 0 = Not at all Feeling afraid as if something awful might happen: 0 = Not at all Total JAILENE-7 score (0-4 normal; 5-9 mild; 10-14 moderate; 15-21 severe): 0 Source: Developed by Drs. Kimani Marte, Leticia Gillespie, Modesto Quezada and colleagues, with an educational uma from [employer]. JAILENE-7 Assessment Billing JAILENE-7 Assessment Tool: JAILENE-7 Assessment 49766 Review of Systems Const All systems reviewed & are unremarkable except as noted in HPI and below Card Denies chest pain at rest, Denies chest pain with activity, Denies edema, Denies irregular heart rhythm, Denies claudication, Denies dyspnea, Denies dyspnea on exertion, Denies orthopnea, Denies paroxysmal nocturnal dyspnea and Denies slow heart rate Resp Denies cough, Denies dyspnea and Denies dyspnea on exertion Physical exam (Primary Care) Vital Signs: Last Vital Signs Pulse 76 01/26/25 14:49 Resp 18 01/26/25 14:49 BP 118/70 01/26/25 14:49 Pulse Ox 96 01/26/25 14:49 Oxygen Delivery Method Room Air 01/26/25 14:49 BMI result Body Mass Index 38.8 Tobacco/Smoking Status: Tobacco use Status Tobacco use date assessed 01/26/25 01/26/25 14:51 Patient Tobacco Use Status Never used Tobacco 01/26/25 14:51 e-Cigarette/Vaping Use Never Used 01/26/25 14:51 PHQ-9: PHQ-9 Score PHQ-9: Total score 2 01/26/25 15:40 Depression Screening Interpretation: Negative Thrive Assessment: Date of Thrive Assessment Date Thrive assessed 01/26/25 01/26/25 14:51 Currently or been in a relationship where the following occur: No concerns reported HENMT Head: Yes normal to inspection, Yes normocephalic and Yes atraumatic Ears: external ears normal Eyes General: appearance normal, both eyes and all related structures Eyelids: Yes eyelids normal Conjunctivae: conjunctivae normal Neck Neck: Yes normal visual inspection and Yes supple Resp Effort & Inspection: normal respiratory effort Auscultation: clear to auscultation bilaterally Cardio Jugular venous distension: no JVD Rate: regular rate Rhythm: regular rhythm Heart sounds: S1 normal heart sound present and S2 normal heart sound present GI Inspection: Yes normal to inspection Palpation (GI): Soft to palpation and nontender Auscultation: normal bowel sounds Skin General skin exam: no rashes or lesions noted Neuro General: no focal motor deficits Extrem General: Yes full ROM Psych Appearance: grossly normal Coding Level of Care Code Est Pt Level 3 (79912) Est Pt Prev Care 18-39y(41885) Diagnoses Physical exam Z00.00 Hair loss L65.9 Right knee pain M25.561 Abdominal bloating R14.0 Additional Codes JAILENE-7 Assessment Billing - JAILENE-7 Assessment Tool: JAILENE-7 Assessment 83445 ([id number]) PHQ-9 - 68021 - PHQ-9 Billing: Yes ([id number]) Time Spent (min) 35 Assessment & Plan Assessment & Plan (1) Physical exam: Code(s): Z00.00 - Encounter for general adult medical examination without abnormal findings Category: Medical (2) Hair loss: Code(s): L65.9 - Nonscarring hair loss, unspecified Category: Medical (3) Right knee pain: Code(s): M25.561 - Pain in right knee Category: Medical (4) Abdominal bloating: Code(s): R14.0 - Abdominal distension (gaseous) Category: Medical Plan Plan Patient was informed and verbally consented to the use of an ambient scribe for clinic note documentation during this visit. 1. Other specified symptoms and signs involving the digestive system and abdomen R19.8 The patient reports gastrointestinal bloating and pain after consuming certain foods. A referral to gastroenterology is planned for further evaluation and management. 2. Unspecified symptoms and signs involving the musculoskeletal system R29.91 The patient experiences knee pain, which she attributes to aging. A referral to orthopedics is considered for further assessment. 3. Other skin changes R23.8 The patient reports hair loss and inquires about dermatological evaluation. A referral to dermatology is planned for further evaluation and management. Orders: Orders Thyroid Stimulating Hormone Today E04.2 - Nontoxic multinodular goiter Free T4 (Free Thyroxine) Today E04.2 - Nontoxic multinodular goiter Lipid Panel Today Z00.00 - Encounter for general adult medical examination without abnormal findings Comprehensive [place]. Panel Fast Today Z00.00 - Encounter for general adult medical examination without abnormal findings Referrals Gastroenterology Referral R14.0 - Abdominal distension (gaseous) Dermatology Referral L65.9 - Nonscarring hair loss, unspecified Orthopedics Referral M25.561 - Pain in right knee Medications: Refilled cetirizine (Zyrtec) 10 mg PO DAILY PRN 30 tabs 3RF allergy symptoms 30 days J30.1 - Allergic rhinitis due to pollen Patient Instructions: - Schedule and complete blood work for cholesterol, sugar, kidney, liver, and thyroid function. - Follow up with referrals to gastroenterology, orthopedics, and dermatology as discussed. - Continue taking Zyrtec for allergy management as needed.
--- OUTSIDE RECORDS SUMMARY | 2025-01-26 16:07 | XMS_ITS | Clinical Summary ---
Author Organization [facility] ity Address [address] [place] [address] Care Team Providers Care [employer] Supervisor Name Role Phone Boo Méndez MD Primary Care Provider Social History Tobacco Use Types Packs/Day Years Used Date Smoking Tobacco: Never Assessed Comments Unknown Sex and Gender Information Value Date Recorded Sex Assigned at Not on file Legal Sex Female 11:12 AM EST Gender Identity Not on file Sexual Orientation Not on file Plan of Treatment Health Maintenance Due Date Last Done Comments DTaP,Tdap,and Td Vaccines (1 - Tdap) 2005 Hepatitis B Vaccines (1 of 3 - 19+ 3-dose series) 2005 Cervical Cancer Screening: P ap Smear 2007 COVID-19 Vaccine ( - 2023-2 5 season) 2024 Depression Screening 06/04/2024 Influenza Vaccine (#1) 2025 HIB Vaccines Aged Out No longer eligi ble based on patient's age to complete this topic HPV Vaccines Aged Out No longer eligi ble based on patient's age to complete this topic Hepatitis A Vaccines Aged Out No long er eligible based on patient's age to complete this topic IPV Vaccines Aged Out No longer eligi ble based on patient's age to complete this topic MMR Vaccines Aged Out No longer eligi ble based on patient's age to complete this topic Meningococcal ACWY Vaccine Aged Out N o longer eligible based on patient's age to complete this topic Meningococcal B Vaccine Aged Out No l onger eligible based on patient's age to complete this topic Pneumococcal Vaccine: Pediat rics (0 to 5 Years) and At-Risk Patients (6 to 49 Years) Aged Out No longer eligible b ased on patient's age to complete this topic RSV Immunization Patients Un willie 20 months Aged Out No longer eligible b ased on patient's age to complete this topic Varicella Vaccines Aged Out No longer eligible based on patient's age to complete this topic Care Teams [employer] Supervisor Relationship Specialty Start Date End Date Boo Méndez MD [address] [place] [address] Dr [address] MARYA Cerrato PCP - General Internal Medicine 01/18/17
== END 2025-01-26 17:00 | disposition home or self-care (01) ==
LOC: HO.HMCH 14:27
PROVIDERS: PCP Internal Medicine; Visit Provider Internal Medicine
DX: Z00.00 Encounter for general adult medical examination without abnormal findings (principal); L65.9 Nonscarring hair loss, unspecified; M25.561 Pain in right knee; R14.0 Abdominal distension (gaseous)

== ENCOUNTER → 2025-01-26 14:25 | Outpatient (BNVA) | payer OTHER, SELFPAY | PROVIDERS: PCP Internal Medicine; Visit Provider Internal Medicine | DX: Z00.00 Encounter for general adult medical examination without abnormal findings (principal); L65.9 Nonscarring hair loss, unspecified; M25.561 Pain in right knee; R14.0 Abdominal distension (gaseous) | CPT/HCPCS: 96127; 99212; 99395 ==

== ENCOUNTER 2025-04-17 08:53 | Outpatient (REF) | payer OTHER, SELFPAY | END 2025-04-17 08:54 | disposition home or self-care (01) | LOC: HO.HOSX 08:53 | PROVIDERS: Visit Provider Physician Assistant | DX: Z13.89 Encounter for screening for other disorder (principal) ==